=== PATIENT | male | born 1935 | race Caucasian/White ===

== ENCOUNTER → 2016-10-24 | Outpatient (CLI) | payer BC, OTHER ==
[~2016-10-24] MED LIST: ACET-1256 PO; ACET325T30 PO; ADVIN25050 INH; ASPI81TA57 PO; BISA-16 RE; CARV6.252 PO; ERGO1CAP35 PO; FLUT0.15 NAE; FLUT1INH INH; FRS/40 PO; HYCUDL5 PO; HYDR200T5 PO; IPRASOL4 INH; LEVO25TA PO; LSX40 PO; MAGNSUS5 PO; MELA1TAB5 PO; METO2.5T PO; MULT-884 PO; POLY335019 PO; POTA10CA28 PO; PRED10TA PO; SENN-61 PO; SODI1ENE RE; TERI600S SQ
--- NOTE | 2016-10-24 12:18 | DIAGNOSTIC IMAGING REPORT ---
CHEST 2 VIEWS ROUTINE CLINICAL HISTORY: SOB dyspnea COMPARISON STUDY: 12/25/2015 FINDINGS: Mild stable cardiomegaly. Prior median sternotomy. Findings of prior vertebroplasty. Chronic fullness the pulmonary vasculature. Several old bilateral rib fractures. IMPRESSION: Chronic and postoperative change. No acute process. Electronically signed by: Mario Bess M.D. 10/24/2016 12:16 PM
== END | disposition home or self-care (01) ==
LOC: C.RADBBURG 19:03
PROVIDERS: ATTEND Internal Medicine Pulmonary Disease
DX: R06.02 Shortness of breath (principal)

== ENCOUNTER → 2016-10-29 | Outpatient (CLI) | payer OTHER ==
--- NOTE | 2016-10-29 14:26 | DIAGNOSTIC IMAGING REPORT ---
CT HEAD WITHOUT CONTRAST (CT) CLINICAL HISTORY: RIGHT ARM WEAKNESS COMPARISON STUDY: No previous studies for comparison. TECHNIQUE: Axial CT of the brain is performed from the vertex to the skull base. IV contrast was not administered for this examination. CT DOSE: FINDINGS: No intra or extra-axial mass lesions are visualized. There is no CT evidence of acute cortical infarction. There is no evidence of midline shift. There is no acute hemorrhage. No calvarial fractures are visualized. There is slight hyperdensity of a left middle cerebral artery branch in the region of the sylvian fissure. I suspect but am not certain that this is artifactual. There are patchy white matter hypodensities likely on a small vessel basis. There is no evidence of pathologic ventricular dilatation. There is complete opacification left maxilla sinus. There is near complete opacification left ethmoid complex. There is complete opacification left frontal sinus. There is a probable nasal polyp. IMPRESSION: 1. Opacification of the left frontal maxillary and ethmoid sinuses 2. No acute intracranial findings. Electronically signed by: Rad Reynoso M.D. 10/29/2016 2:25 PM Dictated Date/Time: 10/29/2016 2:21 PM
--- NOTE | 2016-10-29 14:58 | DIAGNOSTIC IMAGING REPORT ---
CERVICAL SPINE 5 VIEWS HISTORY: Right arm weakness. Chronic neck pain. COMPARISON: Cervical spine 12/14/2014. FINDINGS: The cervical spinal is visualized from C1 through T1. However, the mid to lower cervical spine is partially obscured by the patient's overlapping shoulders. There is no fracture. Stable 2 mm of anterolisthesis of C2 on C3. Moderate disc space narrowing and endplate osteophytes are seen throughout the cervical spine. There is moderate facet degenerative changes seen throughout the cervical spine. This is not significantly change. S-shaped scoliosis of the cervicothoracic spine. Prevertebral soft tissues and the atlantodens interval are intact. IMPRESSION: 1. Difficult evaluation of the cervical spine due to patient's positioning. 2. No definite acute fractures identified. 3. Stable 2 mm of anterolisthesis of C2 on C3. This is likely due to long-standing degenerative change. 4. Moderate degenerative changes throughout the cervical spine are not significantly changed. Electronically signed by: Choco Camacho M.D. 10/29/2016 2:56 PM Dictated Date/Time: 10/29/2016 2:51 PM
== END | disposition home or self-care (01) ==
LOC: C.CTS 13:52
PROVIDERS: ATTEND Nurse Practitioner Family
DX: M62.81 Muscle weakness (generalized) (principal); M43.12 Spondylolisthesis, cervical region

== ENCOUNTER → 2016-10-30 | Outpatient (CLI) | payer OTHER ==
[2016-10-30 09:30] LABS: HEMATOCRIT 38.1 % (42-52); MEAN CELL VOLUME 89.6 fL (80-100); MEAN CORPUSCULAR HEMOGLOBIN 30.4 pg (25-34); MEAN CORPUSCULAR HGB CONC 33.9 g/dl (32-36); MEAN PLATELET VOLUME 11.3 fL (7.4-10.4); PLATELET COUNT 129 K/uL (130-400); RED BLOOD COUNT 4.25 M/uL (4.7-6.1); WHITE BLOOD COUNT 5.56 K/uL (4.8-10.8)
[2016-10-30 09:35] LABS: BLOOD UREA NITROGEN 46 mg/dl (7-18); BUN/CREATININE RATIO 48.3 (10-20); CALCIUM 9.5 mg/dl (8.5-10.1); CARBON DIOXIDE 27 mmol/L (21-32); CHLORIDE 100 mmol/L (98-107); CREATININE 0.96 mg/dl (0.60-1.40); GLUCOSE 69 mg/dl (70-99); POTASSIUM 4.4 mmol/L (3.5-5.1); SODIUM 138 mmol/L (136-145)
== END | disposition home or self-care (01) ==
LOC: C.LABFOXMH 09:12
PROVIDERS: ATTEND Internal Medicine
DX: I50.22 Chronic systolic (congestive) heart failure (principal)

== ENCOUNTER → 2016-11-06 | Outpatient (CLI) | payer OTHER ==
[2016-11-06 10:03] LABS: BASO % 0.2 %; BASO ABS # 0.01 K/uL (0-0.2); COMPLETE YES; EOS % 1.5 %; HEMATOCRIT 37.6 % (42-52); IG% 0.2 %; LYMPH % 17.1 %; LYMPH ABS # 0.81 K/uL (1.2-3.4); MEAN CELL VOLUME 88.9 fL (80-100); MEAN CORPUSCULAR HEMOGLOBIN 30.7 pg (25-34); MEAN CORPUSCULAR HGB CONC 34.6 g/dl (32-36); MEAN PLATELET VOLUME 11.5 fL (7.4-10.4); MONO % 14.8 %; NEUT % 66.2 %; PLATELET COUNT 118 K/uL (130-400); RED BLOOD COUNT 4.23 M/uL (4.7-6.1); WHITE BLOOD COUNT 4.74 K/uL (4.8-10.8)
[2016-11-06 10:16] LABS: BLOOD UREA NITROGEN 44 mg/dl (7-18); BUN/CREATININE RATIO 50.8 (10-20); CALCIUM 9.5 mg/dl (8.5-10.1); CARBON DIOXIDE 28 mmol/L (21-32); CHLORIDE 103 mmol/L (98-107); CREATININE 0.87 mg/dl (0.60-1.40); GLUCOSE 65 mg/dl (70-99); MAGNESIUM 1.8 mg/dl (1.8-2.4); POTASSIUM 4.2 mmol/L (3.5-5.1); SODIUM 140 mmol/L (136-145)
== END | disposition home or self-care (01) ==
LOC: C.LABFOXMH 09:38
PROVIDERS: ATTEND Internal Medicine
DX: I50.40 Unspecified combined systolic (congestive) and diastolic (congestive) heart failure (principal); R53.83 Other fatigue

== ENCOUNTER → 2016-11-15 | Outpatient (CLI) | payer OTHER ==
[2016-11-15 10:07] LABS: BLOOD UREA NITROGEN 50 mg/dl (7-18); BUN/CREATININE RATIO 51.6 (10-20); CALCIUM 9.3 mg/dl (8.5-10.1); CARBON DIOXIDE 29 mmol/L (21-32); CHLORIDE 103 mmol/L (98-107); CREATININE 0.97 mg/dl (0.60-1.40); GLUCOSE 109 mg/dl (70-99); POTASSIUM 4.5 mmol/L (3.5-5.1); SODIUM 139 mmol/L (136-145)
== END | disposition home or self-care (01) ==
LOC: C.LABFOXMH 09:17
PROVIDERS: ATTEND Internal Medicine
DX: I50.40 Unspecified combined systolic (congestive) and diastolic (congestive) heart failure (principal)

== ENCOUNTER → 2016-12-03 | Outpatient (CLI) | payer OTHER ==
[2016-12-03 10:30] LABS: BLOOD UREA NITROGEN 37 mg/dl (7-18); BUN/CREATININE RATIO 39.8 (10-20); CALCIUM 9.3 mg/dl (8.5-10.1); CARBON DIOXIDE 28 mmol/L (21-32); CHLORIDE 101 mmol/L (98-107); CREATININE 0.94 mg/dl (0.60-1.40); GLUCOSE 52 mg/dl (70-99); POTASSIUM 4.6 mmol/L (3.5-5.1); SODIUM 139 mmol/L (136-145)
== END | disposition home or self-care (01) ==
LOC: C.LABFOXMH 09:09
PROVIDERS: ATTEND Nurse Practitioner Family
DX: R60.9 Edema, unspecified (principal)

== ENCOUNTER → 2016-12-10 | Outpatient (CLI) | payer OTHER ==
[2016-12-10 08:59] LABS: BLOOD UREA NITROGEN 56 mg/dl (7-18); BUN/CREATININE RATIO 43.4 (10-20); CALCIUM 9.5 mg/dl (8.5-10.1); CARBON DIOXIDE 28 mmol/L (21-32); CHLORIDE 97 mmol/L (98-107); POTASSIUM 4.4 mmol/L (3.5-5.1); SODIUM 135 mmol/L (136-145)
[2016-12-10 09:00] LABS: GLUCOSE 43 mg/dl (70-99)
== END | disposition home or self-care (01) ==
LOC: C.LABFOXMH 08:33
PROVIDERS: ATTEND Internal Medicine Cardiovascular Disease
DX: I25.10 Atherosclerotic heart disease of native coronary artery without angina pectoris (principal); I42.9 Cardiomyopathy, unspecified; I50.22 Chronic systolic (congestive) heart failure; I27.81 Cor pulmonale (chronic); I51.9 Heart disease, unspecified

== ENCOUNTER 2016-12-15 15:08 | Inpatient (IN) | payer OTHER ==
[2016-12-15] VITALS (30 sets, daily range): BP systolic 53–126; BP diastolic 34–86; PULSE 65–89; TEMP 32–34.9; O2SAT 91–100; Ht 157.5 cm; Wt 54.7 kg
[~2016-12-15] VITALS: Ht 157.5 cm; Wt 54.7 kg
[~2016-12-15 15:08] MED LIST changes: -ACET325T30 PO; -BISA-16 RE; -FLUT1INH INH; -FRS/40 PO; -METO2.5T PO; -POTA10CA28 PO; -SODI1ENE RE
[2016-12-15] MEDS ORDERED: SODIUM CHLORIDE 0.9% 1000ML 1,000 ML IV STA (15:11)
[2016-12-15] MEDS ORDERED: DOPamine 400MG / 250ML D5W ONE ×2 (15:29→22:03)
[2016-12-15] MEDS ORDERED: DOPamine 400MG / D5W 400 MG IV STA (15:30)
--- NOTE | 2016-12-15 15:42 | DIAGNOSTIC IMAGING REPORT ---
LEFT TIBIA/FIBULA 2 VIEWS ROUTINE CLINICAL HISTORY: Left leg pain following fall. COMPARISON: None FINDINGS: No acute fracture of the left tibia or fibula is identified. There is suspected soft tissue swelling of the left lower leg. There is moderate vascular calcification. IMPRESSION: No acute fracture of the left tibia or fibula. Electronically signed by: Mahesh Jaime M.D. 12/15/2016 3:41 PM Dictated Date/Time: 12/15/2016 3:39 PM
[2016-12-15 15:47] LABS: INR 1.2 (0.9-1.1); PARTIAL THROMBOPLASTIN RATIO 1.6; PROTHROMBIN TIME (PATIENT) 12.7 SECONDS (9.0-12.0)
[2016-12-15 15:48] LABS: ISTAT CREATININE 2.2 mg/dl (0.6-1.3); ISTAT HEMOGLOBIN 11.6 g/dl (14.0-18.0); ISTAT IONIZED CALCIUM 1.27 mmol/l (1.12-1.32)
[2016-12-15 15:51] LABS: POINT OF CARE TROPONIN I 0.03 ng/ml (0-0.045)
--- NOTE | 2016-12-15 15:52 | DIAGNOSTIC IMAGING REPORT ---
CHEST ONE VIEW PORTABLE CLINICAL HISTORY: Weakness. Lower leg injury. COMPARISON STUDY: Chest radiograph October 24, 2016. FINDINGS: A 1 level vertebral augmentation is noted. Moderate cardiomegaly is unchanged. There are median sternotomy wires. There is no pneumothorax. Blunting of the right costophrenic angle is likely chronic. Diffuse interstitial thickening and bilateral opacities have increased. Lower lung linear opacities suggest scarring or atelectasis. IMPRESSION: 1. Increase in diffuse interstitial thickening and bilateral opacities which may reflect pulmonary edema or an infectious process. 2. No pneumothorax. 3. Stable cardiomegaly. Electronically signed by: Mahesh Jaime M.D. 12/15/2016 3:50 PM Dictated Date/Time: 12/15/2016 3:47 PM
[2016-12-15 15:54] LABS: URINE APPEARANCE CLEAR (CLEAR); URINE BILIRUBIN NEG (NEG); URINE COLOR YELLOW; URINE NITRITE NEG (NEG); URINE SPECIFIC GRAVITY 1.012 (1.000-1.030); UROBILINOGEN NEG (NEG)
[2016-12-15 15:54] LABS: ALT/SGPT 35 U/L (12-78); AST/SGOT 43 U/L (15-37); BLOOD UREA NITROGEN 77 mg/dl (7-18); BUN/CREATININE RATIO 33.4 (10-20); CALCIUM 8.6 mg/dl (8.5-10.1); CARBON DIOXIDE 26 mmol/L (21-32); CHLORIDE 101 mmol/L (98-107); GLUCOSE 117 mg/dl (70-99); MAGNESIUM 2.6 mg/dl (1.8-2.4); POTASSIUM 4.2 mmol/L (3.5-5.1); SODIUM 138 mmol/L (136-145)
[2016-12-15 15:57] LABS: MANUAL MICROSCOPIC REQUIRED? NO; REVIEW REQ? NO
[2016-12-15 16:03] LABS: ALKALINE PHOSPHATASE 83 U/L (45-117); CKMB/CK RATIO 12.7 (0-3.0)
[2016-12-15] MEDS ORDERED: PIPERACILLIN/TAZOBACTAM 4.5 GM/100ML D5W IV STA (16:15)
[2016-12-15] MEDS ORDERED: LEVAQUIN 750MG / 150ML D5W IV STA (16:15)
--- NOTE | 2016-12-15 16:22 | DIAGNOSTIC IMAGING REPORT ---
CT OF THE HEAD WITHOUT CONTRAST CLINICAL HISTORY: Weakness. COMPARISON STUDY: Head CT October 29, 2016. TECHNIQUE: Helical axial images of the head were obtained without IV contrast. Automated exposure control was utilized for the study. FINDINGS: No acute intracranial hemorrhage, midline shift or mass effect is present. Ventricular system is stable. This study is mildly compromised by motion artifact. The basilar cisterns are patent. There are no extra axial collections. White matter hypodensity suggests small vessel disease. There are no findings to suggest acute dural sinus thrombosis or acute territorial infarct. Suspected venous gas is noted at the level the foramen magnum. Mastoid air cells are clear. Nasal cannula is in place. As before, the left maxillary, ethmoid and frontal sinuses are opacified. There has been interval development of air-fluid levels within the right frontal and maxillary sinuses. There is no calvarial fracture. IMPRESSION: 1. No acute intracranial findings. 2. Opacified left maxillary, ethmoid and frontal sinuses, similar to exam of October 29, 2016 with widening of the left maxillary sinus ostium. Interval development of air-fluid levels within the right frontal and maxillary sinuses. Electronically signed by: Mahesh Jaime M.D. 12/15/2016 4:21 PM Dictated Date/Time: 12/15/2016 4:11 PM
--- NOTE | 2016-12-15 16:32 | DIAGNOSTIC IMAGING REPORT ---
CT OF THE CERVICAL SPINE WITHOUT CONTRAST CLINICAL HISTORY: Fall. Altered mental status. COMPARISON STUDY: Cervical spine CT August 27, 2015 and cervical spine radiographs October 29, 2016. TECHNIQUE: Helical axial images of the cervical spine were obtained without IV contrast. Sagittal and coronal reconstructions were viewed. FINDINGS: No acute cervical spine fracture is identified. Note is made of severe arthrosis of the left C2-C3 facet joint. Moderate to severe multilevel degenerative changes are present. There is mild leftward curvature of the cervical spine which may be positional. There is gas at the level the foramen magnum that is likely venous in location. There is no prevertebral edema. Craniocervical junction is intact. IMPRESSION: 1. No acute cervical spine fracture or subluxation. 2. Moderate to severe multilevel degenerative disc disease and facet arthrosis of the cervical spine. Electronically signed by: Mahesh Jaime M.D. 12/15/2016 4:30 PM Dictated Date/Time: 12/15/2016 4:23 PM
[2016-12-15 16:35] LABS: HEMATOCRIT 33.5 % (42-52); MEAN CELL VOLUME 88.2 fL (80-100); MEAN CORPUSCULAR HEMOGLOBIN 30.5 pg (25-34); MEAN CORPUSCULAR HGB CONC 34.6 g/dl (32-36); PLATELET COUNT 40 K/uL (130-400); WHITE BLOOD COUNT 1.66 K/uL (4.8-10.8)
[2016-12-15 16:36] LABS: HYPOSEGMENTED POLYS 1+; LARGE PLATELETS 1+; PLT ESTIMATE DECREASED; TOXIC GRANULATION 2+; VACUOLIZATION 1+
[2016-12-15 16:47] LABS: COMPLETE YES; EOSINOPHIL % 1.7 %; LYMPH ABS # 0.06 K/uL (1.2-3.4); LYMPHOCYTE % 3.4 %; META ABS # 0.53 K/uL (0-0); METAMYELOCYTE % 31.9 %; MYELOCYTE % 10.3 %; NEUTROPHILS % 51.8 %
--- NOTE | 2016-12-15 16:47 | DIAGNOSTIC IMAGING REPORT ---
CT OF THE ABDOMEN AND PELVIS WITHOUT CONTRAST CLINICAL HISTORY: Hypotension. Altered mental status. COMPARISON STUDY: CT of the abdomen and pelvis August 27, 2015. TECHNIQUE: Axial images of the abdomen and pelvis were obtained without IV contrast. Images were reviewed in the axial, sagittal, and coronal planes. FINDINGS: Visualized portions if the lower chest demonstrate moderate cardiomegaly and extensive coronary artery calcification. There is lingular and left lower lobe airspace opacity. Right lower lobe opacity favors atelectasis. No pneumatosis, free air or portal venous gas is present. This exam is significantly compressed by the lack of IV and oral contrast as well as paucity of intra-abdominal fat and motion artifact. There are small gallstones within the gallbladder. The gallbladder is mildly distended. There is indistinctness of the gallbladder wall. Diffuse mesenteric infiltration is present. Unenhanced images of the liver, spleen and kidneys are unremarkable. There is no hydronephrosis. There is no evidence for a bowel obstruction. There may be wall thickening of several small bowel loops which is suboptimally assessed on this exam. A Nicolas balloon is present. Several small bowel loops are noted within the right inguinal hernia without evidence for a bowel obstruction. There are multiple lumbar spine compression fractures which are likely old. Anasarca is noted. There is peripancreatic infiltration. The prostate is enlarged. IMPRESSION: 1. Markedly compromised exam due to lack of contrast and paucity of intraabdominal fat, 2. Gallstones and indistinctness of the gallbladder wall. The findings could reflect acute cholecystitis. 3. Diffuse mesenteric infiltration with peripancreatic infiltration. This could be due to volume overload or acute pancreatitis. 4. Apparent wall thickening of several small bowel loops which could be due to underdistention or represent a nonspecific enteritis. No free air, pneumatosis or portal venous gas. 5. Left lower lobe and lingular opacities. This could reflect pneumonia or atelectasis. Electronically signed by: Mahesh Jaime M.D. 12/15/2016 4:46 PM Dictated Date/Time: 12/15/2016 4:34 PM
[2016-12-15] MEDS ORDERED: METO2.5T PO (17:05)
[2016-12-15] MEDS ORDERED: POTA10CA28 PO (17:05)
[2016-12-15] MEDS ORDERED: FLUT1INH INH (17:05)
[2016-12-15] MEDS ORDERED: BISA-16 RE (17:05)
[2016-12-15] MEDS ORDERED: ACET325T30 PO (17:05)
[2016-12-15] MEDS ORDERED: FRS/40 PO (17:05)
[2016-12-15] MEDS ORDERED: SODI1ENE RE (17:05)
[2016-12-15 19:21] LABS: ISTAT ALLEN TEST Pass; ISTAT ARTERIAL BLOOD GAS HCO3 23 meq/L (19-24); ISTAT ARTERIAL BLOOD GAS PCO2 70 mmHg (35-46); ISTAT ARTERIAL BLOOD GAS PO2 61 mmHg (80-95); ISTAT ARTERIAL BLOOD GAS pH 7.13 (7.35-7.45); ISTAT CARBON DIOXIDE 25 mEq/l (24-31); ISTAT DELIVERY SYSTEM SimpleMask; ISTAT SITE R Radial
[2016-12-15] MEDS ORDERED: METHYLPREDNISOLONE IV 80 MG in SYRINGE 0 ML IV ONE (19:31)
[2016-12-15] MEDS ORDERED: ACETAMINOPHEN 325 MG TAB PO PRN (19:45)
[2016-12-15] MEDS ORDERED: BISACODYL 5 MG TABEC PO PRN (19:45)
[2016-12-15] MEDS ORDERED: MAGNESIUM HYDROXIDE SUSP 30 ML UDC PO PRN (19:45)
[2016-12-15] MEDS ORDERED: SOD PHOSPHATE/SOD BIPHOSPHATE ENEMA 132 ML BTL PR PRN (19:45)
[2016-12-15] MEDS ORDERED: ALBUTEROL 0.083% NEBU SOLN 3 ML VIAL INH PRN (19:45)
[2016-12-15 20:44] LABS: FIBRINOGEN* 408 mg/dl (184-400)
[2016-12-15] MEDS ORDERED: ACETAMINOPHEN IV 1,000 MG in EMPTY BAG 0 ML IV PRN (20:45)
[2016-12-15] MEDS ORDERED: CHLORHEXIDINE GLUCONATE 0.12% 480 ML MT SCH (21:00)
[2016-12-15] MEDS ORDERED: LEVOFLOXACIN CONSULT ACTIVE PRN (21:00)
[2016-12-15] MEDS ORDERED: DOBUTamine / D5W 500 MG IV PRN (21:00)
[2016-12-15] MEDS ORDERED: NYSTATIN CR 15 GM TUBE EXT SCH (21:00)
[2016-12-15] MEDS ORDERED: POTASSIUM CHLORIDE 10 MEQ TABCR PO SCH (21:00)
[2016-12-15] MEDS ORDERED: NOREPINEPHRINE BIT INJ 8 MG in DEXTROSE 5% 500ML 500 ML IV PRN (21:08)
[2016-12-15] MEDS ORDERED: LINEZOLID / D5W 600 MG in PREMIXED IN D5W 300 ML IV ONE (21:14)
[2016-12-15] MEDS ORDERED: ONDANSETRON INJ 2 MG/ML 2 ML VIAL IV PRN (21:15)
[2016-12-15] MEDS ORDERED: ACETAMINOPHEN IV 1000MG/100ML IV PRN (21:30)
[2016-12-15] MEDS: METHYLPREDNISOLONE IV 80 MG in SYRINGE 0 ML IV SCH (21:33)
--- NOTE | 2016-12-15 21:49 | History and Physical ---
History & Physical Date & Time of Service: Dec 15, 2016 at 21:48 Chief Complaint: Unresponsive Primary Care Physician: Vinnie Nieves M.D. Past Medical/Surgical History Medical Problems: (1) Bronchitis Status: Resolved (2) CHF (congestive heart failure) Status: Chronic (3) DVT (deep venous thrombosis) Status: Resolved (4) Pneumonia Status: Resolved (5) Vertebral compression fracture Status: Resolved Family History Heart disease Hypertension Social History Smoking Status: Never Smoker Drug Use: none Marital Status: Occupational Status: retired Multi-Drug Resistant Organisms History of MDRO: Yes Type of MDRO: MRSA Allergies Coded Allergies: Atorvastatin (Verified Allergy, Unknown, RASH, 12/15/16) Clindamycin (Verified Allergy, Unknown, RASH, 12/15/16) Sulfamethoxazole w/Trimethoprim (Verified Allergy, Unknown, fever, 12/15/16 ) Uncoded Allergies: ANIT-RHEUMATICS (Allergy, Unknown, FEVER,FLU LIKE SYMPTOMS, 01/06/15) Home Medications Scheduled Aspirin (Aspirin Ec Lo-Dose), 81 MG PO QAM Bisacodyl (Dulcolax), 10 MG RE UD Carvedilol (Coreg), 6.25 MG PO BID Ergocalciferol (Vitamin D Cap), 50,000 INTER.UNIT PO WK Fluticasone Furoate-Vilanterol (Breo Ellipta), 25 MCG INH DAILY Furosemide (Lasix), 60 MG PO DAILY Hydroxychloroquine Sulfate (Plaquenil), 200 MG PO DAILY Ipratropium-Albuterol (Duoneb), 1 TREATMENT INH QID Levothyroxine Sodium (Synthroid), 25 MCG PO DAILY Metolazone (Zaroxolyn), 2.5 MG PO DAILY Multiple Vitamin (Multi Vitamin Daily), 1 TAB PO DAILY Potassium Chloride (Micro-K Ext Rel), 10 MEQ PO BID Prednisone Tab (Prednisone), 5 MG PO DAILY Sodium Phosphates (Fleet Enema Six Pack), 1 APPLN RE [id number] Teriparatide (Recombinant) (Forteo), 20 MCG SQ DAILY Scheduled PRN Acetaminophen (Acetaminophen), 650 MG PO Q4 PRN for Pain Magnesium Hydroxide (Milk Of Magnesia), 30 ML PO DAILY PRN for Constipation Physical Exam Vital Signs Date Time Temp Pulse Resp B/P Pulse Ox O2 Delivery O2 Flow Rate FiO2 12/15/16 20:14 32.0 71 37 82/57 95 12/15/16 20:00 92 BiPAP 70 12/15/16 20:00 32.0 71 29 93 12/15/16 19:59 32.0 73 26 90/60 100 12/15/16 19:44 74 33 98/58 97 12/15/16 19:29 72 25 99/54 95 12/15/16 19:14 77 23 102/49 93 12/15/16 19:00 76 22 95 12/15/16 18:31 72 20 90/50 95 Non-Rebreather 15.0 12/15/16 18:00 36.3 68 34 104/60 96 12/15/16 17:49 104/60 96 Non-Rebreather 12/15/16 17:44 68 34 95 Non-Rebreather 12/15/16 17:39 99/60 12/15/16 17:34 68 31 92 Non-Rebreather 12/15/16 17:29 36.3 24 106/56 12/15/16 17:24 68 30 97 Non-Rebreather 12/15/16 17:19 106/60 12/15/16 17:14 70 35 99 Non-Rebreather 12/15/16 17:09 69 30 104/58 97 Non-Rebreather 12/15/16 16:58 101/61 12/15/16 16:54 70 30 96 Non-Rebreather 12/15/16 16:52 101/52 12/15/16 16:39 71 28 101/62 96 Non-Rebreather 12/15/16 16:34 72 24 96 Non-Rebreather 12/15/16 16:29 74 28 96 Non-Rebreather 12/15/16 16:28 104/56 12/15/16 16:24 72 34 94 Non-Rebreather 12/15/16 16:19 95/47 12/15/16 16:18 81 15 94 Non-Rebreather 12/15/16 16:13 73 35 98 Non-Rebreather 12/15/16 16:12 92/46 12/15/16 15:45 66/45 12/15/16 15:43 80 30 Ambu-Bag 12/15/16 15:40 61/29 12/15/16 15:38 79 41 60/40 92 Ambu-Bag 12/15/16 15:34 58/36 12/15/16 15:33 62 32 96 Ambu-Bag 12/15/16 15:29 46/30 12/15/16 15:28 58 34 93 Ambu-Bag 12/15/16 15:25 81/45 12/15/16 15:25 92 Ambu-Bag 15.0 12/15/16 15:23 40 30 94 Ambu-Bag 12/15/16 15:21 12/15/16 15:20 44 65/42 94 Ambu-Bag 12/15/16 15:18 67 22 96 Ambu-Bag 12/15/16 15:17 47 12/15/16 15:14 65/42 12/15/16 15:12 150/24 Diagnostics Laboratory Results Results Past 24 Hours Test 12/15/16 15:25 12/15/16 15:26 12/15/16 15:28 12/15/16 15:31 Range/Units White Blood Count 1.66 4.8-10.8 K/uL Red Blood Count 3.80 4.7-6.1 M/uL Hemoglobin 11.6 14.0-18.0 g/dL Hematocrit 33.5 42-52 % Mean Corpuscular Volume 88.2 80-100 fL Mean Corpuscular Hemoglobin 30.5 25-34 pg Mean Corpuscular Hemoglobin Concent 34.6 32-36 g/dl Platelet Count 40 130-400 K/uL Mean Platelet Volume 12.0 7.4-10.4 fL RDW Standard Deviation 50.6 36.4-46.3 fL RDW Coefficient of Variation 15.8 11.5-14.5 % Nucleated RBC Absolute Count (auto) 0.10 0-0 K/uL Neutrophils % (Manual) 51.8 % Lymphocytes % (Manual) 3.4 % Monocytes % (Manual) 0.9 % Eosinophils % (Manual) 1.7 % Metamyelocytes % 31.9 % Myelocytes % 10.3 % Nucleated Red Blood Cells % 5.7 % Neutrophils # (Manual) 0.86 1.4-6.5 K/uL Total Absolute Neutrophils 0.86 1.4-6.5 K/uL Lymphocytes # (Manual) 0.06 1.2-3.4 K/uL Total Absolute Lymphocytes 0.06 1.2-3.4 K/uL Monocytes # (Manual) 0.01 0.11-0.59 K/uL Eosinophils # (Manual) 0.03 0-0.5 K/uL Metamyelocytes # 0.53 0-0 K/uL Myelocytes # 0.17 0-0 K/uL Hyposegmented Neutrophils 1+ Toxic Granulation 2+ Toxic Vacuolation 1+ Platelet Estimate DECREASED Large Platelets 1+ Prothrombin Time 12.7 9.0-12.0 SECONDS Prothromb Time International Ratio 1.2 0.9-1.1 Activated Partial Thromboplast Time 41.1 21.0-31.0 SECONDS Partial Thromboplastin Ratio 1.6 Sodium Level 138 136-145 mmol/L Potassium Level 4.2 3.5-5.1 mmol/L Chloride Level 101 98-107 mmol/L Carbon Dioxide Level 26 21-32 mmol/L Anion Gap 11.0 3-11 mmol/L Blood Urea Nitrogen 77 7-18 mg/dl Creatinine 2.30 0.60-1.40 mg/dl Estimated GFR () 29.8 Estimated GFR (Non- 25.7 BUN/Creatinine Ratio 33.4 10-20 Random Glucose 117 70-99 mg/dl Calcium Level 8.6 8.5-10.1 mg/dl Magnesium Level 2.6 1.8-2.4 mg/dl Total Bilirubin 0.4 0.2-1 mg/dl Direct Bilirubin 0.2 0-0.2 mg/dl Aspartate Amino Transf (AST/SGOT) 43 15-37 U/L Alanine Aminotransferase (ALT/SGPT) 35 12-78 U/L Alkaline Phosphatase 83 45-117 U/L Total Creatine Kinase 138 39-308 U/L Creatine Kinase MB 17.5 0.5-3.6 ng/ml Creatine Kinase MB Ratio 12.7 0-3.0 Total Protein 4.8 6.4-8.2 gm/dl Albumin 1.9 3.4-5.0 gm/dl Lipase 7213 73-393 U/L Procalcitonin 2.12 0-0.5 ng/mL Thyroid Stimulating Hormone (TSH) 1.990 0.300-4.500 uIu/ml Bedside Glucose 118 70-99 mg/dl Bedside Lactic Acid Venous 1.53 0.90-1.70 mmol/L Bedside Troponin I 0.030 0-0.045 ng/ml [id number]-[id number] Natriuretic Peptide 7368 0-1800 pg/ml Test 12/15/16 15:32 12/15/16 15:45 12/15/16 19:08 12/15/16 19:13 Range/Units Bedside Hemoglobin 11.6 14.0-18.0 g/dl Bedside Hematocrit 34 42-52 % Bedside Sodium 134 135-144 mEq/L Bedside Potassium 4.1 3.3-5.0 mEq/L Bedside Chloride 98 101-112 mEq/L Bedside Total CO2 25 24-31 mEq/l Anion Gap 16.0 16-25 mmol/L Bedside Blood Urea Nitrogen 74 7-18 mg/dl Bedside Creatinine 2.2 0.6-1.3 mg/dl Bedside Glucose (other) 118 70-99 mg/dl Bedside Ionized Calcium (Mery) 1.27 1.12-1.32 mmol/l Urine Color YELLOW Urine Appearance CLEAR CLEAR Urine pH 5.0 4.5-7.5 Urine Specific Calcium 1.012 1.000-1.030 Urine Protein NEG NEG Urine Glucose (UA) NEG NEG Urine Ketones NEG NEG Urine Occult Blood NEG NEG Urine Nitrite NEG NEG Urine Bilirubin NEG NEG Urine Urobilinogen NEG NEG Urine Leukocyte Esterase NEG NEG Blood Gas Sample Site R Radial Bedside Blood Gas pH (LAB) 7.13 7.35-7.45 Bedside Blood Gas pCO2 (LAB) 70 35-46 mmHg Bedside Blood Gas pO2 (LAB) 61 80-95 mmHg Bedside Blood Gas HCO3 (LAB) 23 19-24 meq/L Bedside Blood Gas Total CO2 25 24-31 mEq/l Bedside Blood Gas Base Excess (LAB) -6.0 -9-1.8 meq/L Bedside Blood Gas O2 Saturation 82.0 90-95 % Silvano Test Pass Oxygen Delivery Device SimpleMask Random Cortisol 54.14 mcg/dl Test 12/15/16 20:05 12/15/16 21:47 Range/Units Fibrinogen 408 184-400 mg/dl Fibrin Degradation Products >40 <10 mcg/ml D-Dimer 7100 0-500 ug/L FEU Microbiology Results 12/15/16 Blood Culture, Received Pending 12/15/16 Blood Culture, Received Pending 12/15/16 MRSA DNA Surveillance Screen - Final, Complete Specimen Positive for MRSA by DNA Probe 2/26/17 Urine Culture, Received Pending Impression Assessment and Plan admit #[id number] Advanced Directives Existing Living Will: Yes Existing Power of Way Inspector: Yes VTE Prophylaxis VTE Risk Assessment Done? Y/N: Yes Risk Level: Moderate
[2016-12-15 21:52] LABS: IPAP 12; ISTAT ALLEN TEST Pass; ISTAT ARTERIAL BLOOD GAS HCO3 20 meq/L (19-24); ISTAT ARTERIAL BLOOD GAS PCO2 37 mmHg (35-46); ISTAT ARTERIAL BLOOD GAS PO2 45 mmHg (80-95); ISTAT ARTERIAL BLOOD GAS pH 7.32 (7.35-7.45); ISTAT CARBON DIOXIDE 21 mEq/l (24-31); ISTAT DELIVERY SYSTEM BIPAP; ISTAT FIO2 70 %; ISTAT RATE 12; ISTAT SITE L Radial
--- NOTE | 2016-12-15 22:07 | DIAGNOSTIC IMAGING REPORT ---
BILATERAL LOWER EXTREMITY VENOUS DOPPLER CLINICAL HISTORY: Hypoxia. Asymmetric edema. COMPARISON STUDY: No previous studies for comparison. TECHNIQUE: Sonography of the deep venous system of the bilateral lower extremities was performed. Compression and augmentation were evaluated. FINDINGS: The bilateral common femoral, superficial femoral and popliteal veins were compressible. Augmentation was normal. Flow was shown within the deep calf vessels. Lower extremity edema was noted. Note was made of a right inguinal hernia which contained a small amount of ascites and several bowel loops. This was better depicted on recent abdominal CT. IMPRESSION: 1. No evidence of deep venous thrombus within the bilateral lower extremities. 2. Bowel and fluid containing right inguinal hernia. Electronically signed by: Mahesh Jaime M.D. 12/15/2016 10:05 PM Dictated Date/Time: 12/15/2016 10:04 PM
--- NOTE | 2016-12-15 22:07 | Progress Note ---
Progress Note Date of Service Dec 15, 2016. Progress Note clarification on H&P - DVT proph - i mistakenly dictated heparin SQ - cannot be on pharmacologic proph due to thrombocytopenia; with frail skin and edema - mechanical prophylaxis of dubious benefit in true VTE prevention, and quite strong possible harm from skin breakdown and/or falls. will have to hold on proph and maintain vigilance for s/s DVT w low threshold for further evaluation
[2016-12-15] MEDS ORDERED: SODIUM CHLORIDE 0.9% 1000ML 1,000 ML IV SCH (22:15)
[2016-12-15] MEDS: ALBUT/IPRATROP 3MG/0.5MG NEB 3 ML VIAL INH SCH (22:15)
[2016-12-15] MEDS ORDERED: DOPamine 400MG / D5W 400 MG IV PRN (22:15)
--- NOTE | 2016-12-15 22:39 | EMERGENCY ROOM VISIT NOTE ---
History Report prepared by Sarbjit: Jodi Bautista Under the Supervision of: Dr. Los Han M.D. First contact with patient: 14:54 Stated Complaint: UNRESPONSIVE History of Present Illness The patient is a 81 year old male who presents to the Emergency Room with complaints of being found unresponsive. Per EMS and family, the patient lives at [facility], [place]. He was found in his room unresponsive. Time of unresponsiveness is unknown. EMS arrived and notes he was hypertensive, bradycardic and did not respond to painful stimuli. EMS called for command and established IV. Family was present and states that patient is DNR/DNI. His blood sugar level was 24. IV was established, fluids and supplemental oxygen were given. Dextrose was given to the patient and his blood sugar levels are now 290. Patient is still hypertensive and an ECG shows a heart block. EMS talked with the family and they are okay with pacing. EMS applied pacing and transported patient to ED. This HPI is limited due to the patient's unresponsiveness. Per the patient's family, he has a history of CHF. Last night the patient fell and has bruising to left lower leg. He has also been experiencing worsening physical and cognitive deterioration past 2 weeks. Source of History: family, EMS History Limited By: other (unresponsive) Review of Systems See HPI for pertinent positives and negatives. A total of ten systems were reviewed and were otherwise negative. Past Medical & Surgical Medical Problems: (1) Bronchitis (2) CHF (congestive heart failure) (3) DVT (deep venous thrombosis) (4) Pneumonia (5) Unresponsive (6) Vertebral compression fracture Family History Heart disease Hypertension Social History Smoking Status: Never Smoker Alcohol Use: occasionally Marital Status: Housing Status: [facility] Occupation Status: retired Current/Historical Medications Scheduled Aspirin (Aspirin Ec Lo-Dose), 81 MG PO QAM Bisacodyl (Dulcolax), 10 MG RE UD Carvedilol (Coreg), 6.25 MG PO BID Ergocalciferol (Vitamin D Cap), 50,000 INTER.UNIT PO WK Fluticasone Furoate-Vilanterol (Breo Ellipta), 25 MCG INH DAILY Furosemide (Lasix), 60 MG PO DAILY Hydroxychloroquine Sulfate (Plaquenil), 200 MG PO DAILY Ipratropium-Albuterol (Duoneb), 1 TREATMENT INH QID Levothyroxine Sodium (Synthroid), 25 MCG PO DAILY Metolazone (Zaroxolyn), 2.5 MG PO DAILY Multiple Vitamin (Multi Vitamin Daily), 1 TAB PO DAILY Potassium Chloride (Micro-K Ext Rel), 10 MEQ PO BID Prednisone Tab (Prednisone), 5 MG PO DAILY Sodium Phosphates (Fleet Enema Six Pack), 1 APPLN RE [id number] Teriparatide (Recombinant) (Forteo), 20 MCG SQ DAILY Scheduled PRN Acetaminophen (Acetaminophen), 650 MG PO Q4 PRN for Pain Magnesium Hydroxide (Milk Of Magnesia), 30 ML PO DAILY PRN for Constipation Allergies Coded Allergies: Atorvastatin (Verified Allergy, Unknown, RASH, 12/15/16) Clindamycin (Verified Allergy, Unknown, RASH, 12/15/16) Sulfamethoxazole w/Trimethoprim (Verified Allergy, Unknown, fever, 12/15/16 ) Uncoded Allergies: ANIT-RHEUMATICS (Allergy, Unknown, FEVER,FLU LIKE SYMPTOMS, 01/06/15) Physical Exam Vital Signs Date Time Temp Pulse Resp B/P Pulse Ox O2 Delivery O2 Flow Rate FiO2 12/15/16 17:09 69 30 104/58 97 Non-Rebreather 12/15/16 16:58 101/61 12/15/16 16:54 70 30 96 Non-Rebreather 12/15/16 16:52 101/52 12/15/16 16:39 71 28 101/62 96 Non-Rebreather 12/15/16 16:34 72 24 96 Non-Rebreather 12/15/16 16:29 74 28 96 Non-Rebreather 12/15/16 16:28 104/56 12/15/16 16:24 72 34 94 Non-Rebreather 12/15/16 16:19 95/47 12/15/16 16:18 81 15 94 Non-Rebreather 12/15/16 16:13 73 35 98 Non-Rebreather 12/15/16 16:12 92/46 12/15/16 15:45 66/45 12/15/16 15:43 80 30 Ambu-Bag 12/15/16 15:40 61/29 12/15/16 15:38 79 41 60/40 92 Ambu-Bag 12/15/16 15:34 58/36 12/15/16 15:33 62 32 96 Ambu-Bag 12/15/16 15:29 46/30 12/15/16 15:28 58 34 93 Ambu-Bag 12/15/16 15:25 81/45 12/15/16 15:25 92 Ambu-Bag 15.0 12/15/16 15:23 40 30 94 Ambu-Bag 12/15/16 15:21 12/15/16 15:20 44 65/42 94 Ambu-Bag 12/15/16 15:18 67 22 96 Ambu-Bag 12/15/16 15:17 47 12/15/16 15:14 65/42 12/15/16 15:12 150/24 Physical Exam GENERAL: Unresponsive. HENT: Normocephalic, atraumatic. Oropharynx unremarkable. EYES: Normal conjunctiva. Sclera non-icteric. NECK: Supple. No nuchal rigidity. FROM. No JVD. RESPIRATORY: Clear to auscultation. CARDIAC: Bradycardic rate, normal rhythm. Extremities warm and well perfused. Pulses equal. ABDOMEN: Soft, non-distended. No tenderness to palpation. No rebound or guarding. No masses. RECTAL: Deferred. MUSCULOSKELETAL: Chest examination reveals no tenderness. The back is symmetrical on inspection without obvious abnormality. There is no CVA tenderness to palpation. No joint edema. LOWER EXTREMITIES: Calves are equal size bilaterally and non-tender. 2+ edema. No discoloration. NEURO: Normal sensorium. No sensory or motor deficits noted. SKIN: No rash or jaundice noted. Medical Decision & Procedures ER Provider Diagnostic Interpretation: X ray results as stated below per my interpretation and radiologist interpretation. Other radiology results as stated below per my review and radiologist interpretation Limited bedside Ultrasound: Global hypokinesis, no pericardial infusion. CT OF THE HEAD WITHOUT CONTRAST CLINICAL HISTORY: Weakness. COMPARISON STUDY: Head CT October 29, 2016. TECHNIQUE: Helical axial images of the head were obtained without IV contrast. Automated exposure control was utilized for the study. FINDINGS: No acute intracranial hemorrhage, midline shift or mass effect is present. Ventricular system is stable. This study is mildly compromised by motion artifact. The basilar cisterns are patent. There are no extra axial collections. White matter hypodensity suggests small vessel disease. There are no findings to suggest acute dural sinus thrombosis or acute territorial infarct. Suspected venous gas is noted at the level the foramen magnum. Mastoid air cells are clear. Nasal cannula is in place. As before, the left maxillary, ethmoid and frontal sinuses are opacified. There has been interval development of air-fluid levels within the right frontal and maxillary sinuses. There is no calvarial fracture. IMPRESSION: 1. No acute intracranial findings. 2. Opacified left maxillary, ethmoid and frontal sinuses, similar to exam of October 29, 2016 with widening of the left maxillary sinus ostium. Interval development of air-fluid levels within the right frontal and maxillary sinuses. Electronically signed by: Mahesh Jaime M.D. 12/15/2016 4:21 PM Dictated Date/Time: 12/15/2016 4:11 PM CHEST ONE VIEW PORTABLE CLINICAL HISTORY: Weakness. Lower leg injury. COMPARISON STUDY: Chest radiograph October 24, 2016. FINDINGS: A 1 level vertebral augmentation is noted. Moderate cardiomegaly is unchanged. There are median sternotomy wires. There is no pneumothorax. Blunting of the right costophrenic angle is likely chronic. Diffuse interstitial thickening and bilateral opacities have increased. Lower lung linear opacities suggest scarring or atelectasis. IMPRESSION: 1. Increase in diffuse interstitial thickening and bilateral opacities which may reflect pulmonary edema or an infectious process. 2. No pneumothorax. 3. Stable cardiomegaly. Electronically signed by: Mahesh Jaime M.D. 12/15/2016 3:50 PM Dictated Date/Time: 12/15/2016 3:47 PM LEFT TIBIA/FIBULA 2 VIEWS ROUTINE CLINICAL HISTORY: Left leg pain following fall. COMPARISON: None FINDINGS: No acute fracture of the left tibia or fibula is identified. There is suspected soft tissue swelling of the left lower leg. There is moderate vascular calcification. IMPRESSION: No acute fracture of the left tibia or fibula. Electronically signed by: Mahesh Jaime M.D. 12/15/2016 3:41 PM Dictated Date/Time: 12/15/2016 3:[address] OF THE CERVICAL SPINE WITHOUT CONTRAST CLINICAL HISTORY: Fall. Altered mental status. COMPARISON STUDY: Cervical spine CT August 27, 2015 and cervical spine radiographs October 29, 2016. TECHNIQUE: Helical axial images of the cervical spine were obtained without IV contrast. Sagittal and coronal reconstructions were viewed. FINDINGS: No acute cervical spine fracture is identified. Note is made of severe arthrosis of the left C2-C3 facet joint. Moderate to severe multilevel degenerative changes are present. There is mild leftward curvature of the cervical spine which may be positional. There is gas at the level the foramen magnum that is likely venous in location. There is no prevertebral edema. Craniocervical junction is intact. IMPRESSION: 1. No acute cervical spine fracture or subluxation. 2. Moderate to severe multilevel degenerative disc disease and facet arthrosis of the cervical spine. Electronically signed by: Mahesh Jaime M.D. 12/15/2016 4:30 PM Dictated Date/Time: 12/15/2016 4:[address] OF THE ABDOMEN AND PELVIS WITHOUT CONTRAST CLINICAL HISTORY: Hypotension. Altered mental status. COMPARISON STUDY: CT of the abdomen and pelvis August 27, 2015. TECHNIQUE: Axial images of the abdomen and pelvis were obtained without IV contrast. Images were reviewed in the axial, sagittal, and coronal planes. FINDINGS: Visualized portions if the lower chest demonstrate moderate cardiomegaly and extensive coronary artery calcification. There is lingular and left lower lobe airspace opacity. Right lower lobe opacity favors atelectasis. No pneumatosis, free air or portal venous gas is present. This exam is significantly compressed by the lack of IV and oral contrast as well as paucity of intra-abdominal fat and motion artifact. There are small gallstones within the gallbladder. The gallbladder is mildly distended. There is indistinctness of the gallbladder wall. Diffuse mesenteric infiltration is present. Unenhanced images of the liver, spleen and kidneys are unremarkable. There is no hydronephrosis. There is no evidence for a bowel obstruction. There may be wall thickening of several small bowel loops which is suboptimally assessed on this exam. A Nicolas balloon is present. Several small bowel loops are noted within the right inguinal hernia without evidence for a bowel obstruction. There are multiple lumbar spine compression fractures which are likely old. Anasarca is noted. There is peripancreatic infiltration. The prostate is enlarged. IMPRESSION: 1. Markedly compromised exam due to lack of contrast and paucity of intraabdominal fat, 2. Gallstones and indistinctness of the gallbladder wall. The findings could reflect acute cholecystitis. 3. Diffuse mesenteric infiltration with peripancreatic infiltration. This could be due to volume overload or acute pancreatitis. 4. Apparent wall thickening of several small bowel loops which could be due to underdistention or represent a nonspecific enteritis. No free air, pneumatosis or portal venous gas. 5. Left lower lobe and lingular opacities. This could reflect pneumonia or atelectasis. Electronically signed by: Mahesh Jaime M.D. 12/15/2016 4:46 PM Dictated Date/Time: 12/15/2016 4:34 PM Laboratory Results 12/15/16 15:25 Red Blood Count 3.80, Mean Corpuscular Volume 88.2, Mean Corpuscular Hemoglobin 30.5, Mean Corpuscular Hemoglobin Concent 34.6, Mean Platelet Volume 12.0 12/15/16 15:25 Test 12/15/16 15:25 12/15/16 15:26 12/15/16 15:28 12/15/16 15:31 White Blood Count 1.66 K/uL (4.8-10.8) Red Blood Count 3.80 M/uL (4.7-6.1) Hemoglobin 11.6 g/dL (14.0-18.0) Hematocrit 33.5 % (42-52) Mean Corpuscular Volume 88.2 fL (80-100) Mean Corpuscular Hemoglobin 30.5 pg (25-34) Mean Corpuscular Hemoglobin Concent 34.6 g/dl (32-36) Platelet Count 40 K/uL (130-400) Mean Platelet Volume 12.0 fL (7.4-10.4) RDW Standard Deviation 50.6 fL (36.4-46.3) RDW Coefficient of Variation 15.8 % (11.5-14.5) Nucleated RBC Absolute Count (auto) 0.10 K/uL (0-0) Neutrophils % (Manual) 51.8 % Lymphocytes % (Manual) 3.4 % Monocytes % (Manual) 0.9 % Eosinophils % (Manual) 1.7 % Metamyelocytes % 31.9 % Myelocytes % 10.3 % Nucleated Red Blood Cells % 5.7 % Neutrophils # (Manual) 0.86 K/uL (1.4-6.5) Total Absolute Neutrophils 0.86 K/uL (1.4-6.5) Lymphocytes # (Manual) 0.06 K/uL (1.2-3.4) Total Absolute Lymphocytes 0.06 K/uL (1.2-3.4) Monocytes # (Manual) 0.01 K/uL (0.11-0.59) Eosinophils # (Manual) 0.03 K/uL (0-0.5) Metamyelocytes # 0.53 K/uL (0-0) Myelocytes # 0.17 K/uL (0-0) Hyposegmented Neutrophils 1+ Toxic Granulation 2+ Toxic Vacuolation 1+ Platelet Estimate DECREASED Large Platelets 1+ Absolute Reticulocyte Count 0.04 10^6/uL (0.02-0.10) Percent Reticulocyte Count 1.0 % (0.5-2.0) Prothrombin Time 12.7 SECONDS (9.0-12.0) Prothromb Time International Ratio 1.2 (0.9-1.1) Activated Partial Thromboplast Time 41.1 SECONDS (21.0-31.0) Partial Thromboplastin Ratio 1.6 Estimated GFR () 29.8 Estimated GFR (Non- 25.7 BUN/Creatinine Ratio 33.4 (10-20) Calcium Level 8.6 mg/dl (8.5-10.1) Magnesium Level 2.6 mg/dl (1.8-2.4) Total Bilirubin 0.4 mg/dl (0.2-1) Direct Bilirubin 0.2 mg/dl (0-0.2) Aspartate Amino Transf (AST/SGOT) 43 U/L (15-37) Alanine Aminotransferase (ALT/SGPT) 35 U/L (12-78) Alkaline Phosphatase 83 U/L (45-117) Total Creatine Kinase 138 U/L (39-308) Creatine Kinase MB 17.5 ng/ml (0.5-3.6) Creatine Kinase MB Ratio 12.7 (0-3.0) Total Protein 4.8 gm/dl (6.4-8.2) Albumin 1.9 gm/dl (3.4-5.0) Lipase 7213 U/L (73-393) Procalcitonin 2.12 ng/mL (0-0.5) Thyroid Stimulating Hormone (TSH) 1.990 uIu/ml (0.300-4.500) Bedside Glucose 118 mg/dl (70-99) Bedside Lactic Acid Venous 1.53 mmol/L (0.90-1.70) Bedside Troponin I 0.030 ng/ml (0-0.045) SG-Xvl-D-Type Natriuretic Peptide 7368 pg/ml (0-1800) Test 12/15/16 15:32 12/15/16 15:45 Bedside Hemoglobin 11.6 g/dl (14.0-18.0) Bedside Hematocrit 34 % (42-52) Bedside Sodium 134 mEq/L (135-144) Bedside Potassium 4.1 mEq/L (3.3-5.0) Bedside Chloride 98 mEq/L (101-112) Bedside Total CO2 25 mEq/l (24-31) Anion Gap 16.0 mmol/L (16-25) Bedside Blood Urea Nitrogen 74 mg/dl (7-18) Bedside Creatinine 2.2 mg/dl (0.6-1.3) Bedside Glucose (other) 118 mg/dl (70-99) Bedside Ionized Calcium (Mery) 1.27 mmol/l (1.12-1.32) Urine Color YELLOW Urine Appearance CLEAR (CLEAR) Urine pH 5.0 (4.5-7.5) Urine Specific [place] 1.012 (1.000-1.030) Urine Protein NEG (NEG) Urine Glucose (UA) NEG (NEG) Urine Ketones NEG (NEG) Urine Occult Blood NEG (NEG) Urine Nitrite NEG (NEG) Urine Bilirubin NEG (NEG) Urine Urobilinogen NEG (NEG) Urine Leukocyte Esterase NEG (NEG) Date/Time Source Procedure Growth Status 12/15/16 00:00 Nasal MRSA DNA Surveillance Screen - Final Specimen Positive for MRSA by DNA Probe Complete Laboratory results reviewed by me Medications Administered Medications (Trade) Dose Ordered Sig/Reny Route Start Time Stop Time Status Last Admin Dose Admin Sodium Chloride 1,000 ml @ 125 mls/hr Q8H STAT IV 12/15/16 15:11 12/15/16 20:01 DC 12/15/16 15:39 125 MLS/HR Dopamine HCl/ Dextrose (DOPamine 400MG / D5W) 0 ml @ 0 mls/hr Q0M STAT IV 12/15/16 15:30 12/15/16 15:31 DC 12/15/16 15:38 24 MLS/HR Levofloxacin (Levaquin / D5W) 750 mg NOW STAT IV 12/15/16 16:15 12/15/16 16:16 DC 12/15/16 17:44 750 MG Piperacillin Sod/ Tazobactam Sod (Zosyn Iv) 4.5 gm NOW STAT IV 12/15/16 16:15 2/26/17 16:16 DC 12/15/16 17:06 4.5 GM ECG Indication: other (unresponsive) Rate (beats per minute): 46 Rhythm: other (Wide QRS) Findings: T-wave inversion (Inferior), other (Nonspecific atrial ventricular block) Change: 2nd ECG: Sinus rhythm, rate of 73, nonspecific atrial ventricular block, T wave inversion inferiorly, no ectopy When compared to previous the rate has increased by 27. ED Course 1509: The patient was evaluated in room B1. A complete history and physical exam was performed. 1511: Sodium Chloride 1,000 ml @ 125 mls/hr IV. 1518: Pacer applied and dialed in capture via ultrasound. 1520: I discussed with the family the current state of the patient. 1530: Dopamine HCl/ Dextrose 0 ml @ 0 mls/hr IV. 1545: I spoke with Dr. Rivera - Cardiology about the patient. He would like imaging and lab results back first before he evaluates the patient. 1615: Zosyn Iv 4.5 gm IV, Levaquin / D5W 750 mg IV. 1625: I reevaluated the patient. He is doing better. Off the pacer and blood pressure is stable. 1643: I spoke with Dr. Jaime - Radiology about the patient's imaging results. He said head and neck CT look okay. Patient's abdominal CT is hard to interpret due to diffuse infiltration, pancreatitis could be an explanation. Pneumonia in left base found. 1646: Discussed the patient's case with Dr. Carlos LAWRENCE. The patient will be evaluated for further treatment and disposition. 1655: I updated the patient and family on plan for admission and also test results. Medical Decision Triage Nursing notes reviewed. The patient's presentation and history were concerning for altered mental status. Etiologies such as metabolic, infection, hypo/hyperglycemia, electrolyte abnormalities, cardiac sources, intracerebral event, toxicologic, neurologic, as well as others were entertained. Patient was evaluated. Taken to call the patient and directed the supervising floorperson for treatment. The patient was hypoglycemic and this was corrected but his mental status did not improve. He was placed on a transcutaneous pacer and was given IV fluids. He still had hypertension. The patient had effusion, infiltrate, and edema on chest x-ray. Left leg x-ray revealed no evidence of fracture. ECG showed a wide-complex rhythm. Prehospital ECG showed heart block. His rate was still bradycardic when the pacer was removed. He was started again on pacing. Limited bedside ultrasound of his heart revealed normal hypokinesis and bradycardia. No effusion present. The patient had no free fluid within the abdomen. Additional IV fluids were given. The patient had some improvement of his blood pressure with pacing. Family was present for this and help with the decision process as the patient initially was because it DNR/DNI. They felt trying limited measures would be reasonable. The patient was started on IV dopamine and this was titrated. He had a consultation placed with interventional cardiology and they are standing by if a pacemaker is necessary. Patient was taken to CT imaging. His head and neck CT did not acute findings. He did have some general information in the upper abdomen. His blood work didn't reveal an elevated lipase consistent with pancreatitis. He also had acute kidney injury. The patient had an elevated BNP concerning for CHF. He also has JVD lower extremity edema. The patient's hypoglycemia did not return. He had improvement of his mental status. He was noted to have a heart rate greater than the pacer set rate. Pacer was discontinued. Repeat ECG revealed a normal sinus rhythm. The patient's troponin was negative but his CK-MB is slightly elevated. His CT scan of the abdomen also showed findings concerning for a pneumonia. The patient is pancytopenic and neutropenic. He was cultured and given Zosyn. The patient numerous medical issues on each one individually. Overall he seemed to get much better and was responsive to basic questioning. Internal medicine was consulted and evaluated the patient in the Emergency Room. He was admitted to the ICU for further care. ThE chart was completed utilizing Guide Speech voice recognition software. Grammatical errors, random word insertions, pronoun errors, and incomplete sentences are an occasional consequence of this system due to software limitations, ambient noise, and hardware issues. Any formal questions or concerns about the content, text, or information contained within the body of this dictation should be directly addressed to the physician for clarification. Consults Time Called: 1543 Consulting Physician: Dr. Rivera - Cardiology Returned Call: [address] Miguel Hunt about the patient. He would like imaging and lab results back first before he evaluates the patient. Additional Consults: Time Called: 1641 Consulted Physician: Dr. Jaime - Radiology Returned Call: 1643 Additional Comments: I spoke with Dr. aJime - Radiology about the patient's imaging results. He said head and neck CT look okay. Patient's abdominal CT is hard to interpret due to diffuse infiltration, pancreatitis could be an explanation. Pneumonia in left base found. Time Called: 1643 Consulted Physician: Dr. Gonzalez - [facility] [place] Returned Call: [phone] Additional Comments: Discussed the patient's case. The patient will be evaluated for further treatment and disposition. Impression Primary Impression: Neutropenia Additional Impressions: Hypoglycemia Complete heart block Pneumonia Hypotension Acute renal failure Pancreatitis Critical Care I have personally spent greater than 75 minutes of critical care time in the direct management of this patient. This includes bedside care, interpretation of diagnostic studies, and testing, discussion with consultants, patient, and family members, and other required patient management activities. This 75 minutes is in excess of all separately billable procedures. Scribe Attestation The scribe's documentation has been prepared under my direction and personally reviewed by me in its entirety. I confirm that the note above accurately reflects all work, treatment, procedures, and medical decision making performed by me. Departure Information Dispostion Being Evaluated By Hospitalist Problem Qualifiers
--- NOTE | 2016-12-15 23:25 | HISTORY & PHYSICAL EXAMINATION ---
DATE OF ADMISSION: 12/15/2016 CHIEF COMPLAINT: Unresponsive. HISTORY OF PRESENT ILLNESS: History is unobtainable from the patient partly because for most of the HPI he was unresponsive and does not remember it and partly because whether he is delirious or just not able to hear and see well. He is minimally communicative, trying to voice words in a whisper, but it is unclear exactly what he is saying or it is unclear if he is even understanding what I am talking to him about, but at any rate in discussions with EMS and review of records and in discussion with the daughter and review of outpatient charts, it appears that over the last 2 weeks or so he has had an appearance of hypervolemia, worsening CHF. He was following up with Dr. Mathias in the [facility]. Initially on 12/06/2016, there was a question of whether he was having worsening hypervolemia due to a recent reduction in diuretic therapy, and so with a goal of short-term therapy, he was increased on diuretics, counseled on a low-sodium diet, and had close followup. In that close followup only a few days later, he continued to appear hypervolemic, his weight was unchanged, his diuretics were increased even further, and he was scheduled for close followup again, that was just on 12/11/2016, but then his daughter notes generally he has just had a bit of a failure to thrive appearance over that 2 weeks with a poor appetite, not eating and drinking well, and just being a little bit more lethargic, dyspnea on exertion, although maybe not dyspnea at rest, but otherwise definitely dyspnea on exertion. No notable fevers, chills or sweats that she is aware of. Obviously, the weight gain and edema, but then this morning he was found to be unresponsive, uncertain for how long. He was hypotensive, bradycardic, did not respond to painful stimuli, and was hypoglycemic, blood sugar reported to be 24. Initially whenever he arrived at the ER, he was in complete heart block and had transcutaneous pacing. Overtime, the pacing was turned back and he assumed a regular rhythm and now he is being admitted to the ICU. Separately, he had a fall and some left leg pain, and the daughter did note that through the night he was complaining of left leg pain and also over the last couple of weeks he has been a little more easily confused. REVIEW OF SYSTEMS: Again, is unobtainable from the patient and otherwise negative except for as above. PAST MEDICAL HISTORY: Includes osteogenesis imperfecta, coronary artery disease with cardiomyopathy of chronic systolic CHF. His most recent EF in the fall in June was 43% with akinesis of the septal base and base to mid inferior wall, hypokinesis of anterolateral and inferolateral wall. No LVH. Cor pulmonale from his cardiomyopathy, hypertension, mitral valve disease, status post replacement, osteoarthritis, osteoporosis, pulmonary hypertension, rheumatoid arthritis, sleep apnea, mixed obstructive and restrictive lung disease, atrial fibrillation. MEDICATIONS: Tylenol 500 mg q. 4-6 hours p.r.n. pain, aspirin 81 mg daily, Breo 100/25 one inhaled daily, Coreg 6.25 t.i.d., Drisdol 5000 International Units weekly, Flonase 2 sprays each nostril daily, Forteo 20 mcg subcu daily, Lasix currently was 60 mg in the morning and 40 in the afternoon, Plaquenil 200 mg daily, DuoNebs q. 4 hours as needed, melatonin 3 mg at bedtime, metolazone 2.5 mg on Friday and Friday, additional p.r.n. for 3 pounds of weight gain in a day or 5 pounds in a week or increased shortness of breath, milk of magnesia p.r.n., MiraLax p.r.n., multivitamin daily, Nexium 40 mg daily, prednisone 5 mg daily, senna p.r.n. constipation, Synthroid 25 mcg daily. SURGICAL HISTORY: Includes CABG and mitral valve replacement. FAMILY HISTORY: Mom had coronary disease. Dad committed suicide. SOCIAL HISTORY: Never a smoker, rare alcohol. Lives in the [facility], although generally I believe he is more on the independent side of things. ALLERGIES: LISTED ANTIRHEUMATICS, ATORVASTATIN, CLINDAMYCIN, SULFAMETHOXIZOLE, TRIMETHOPRIM. PHYSICAL EXAMINATION: VITAL SIGNS: Initial vitals showed a temp of 36.3, pulse 47, blood pressure 150/24, 96% on 15 liters/Ambu bag, later he became quite hypotensive with blood pressures in the 60/40 range to as low as 58/36 and has improved to about 90-100/50 range. GENERAL: He awakens, makes reasonable eye contact, and seems to have appropriate attempts at conversation in as much as he will wait until I pause speaking to try to speak in almost a regular conversational flow, but it is really not clear what he is saying. He does not reliably follow commands, although his daughter does note that he is very hard of hearing and does not have his hearing aids in. He is appearing very weak and frail. HEENT: Normocephalic, atraumatic. Mucous membranes moist. CARDIOVASCULAR: Very distant without rubs, murmurs or gallops. LUNGS: His right lung shows diffuse coarseness with maybe scattered rales, definitely rhonchi. His left lung has mid lung field rales and diminished air entry at the base. ABDOMEN: Soft, nondistended, nontender. No masses or organomegaly. EXTREMITIES: Without clubbing. He does have distal cyanosis in both of his fingers and toes, although his daughter relates that she believes this is chronic. He has slow capillary refill. He has probably 3 to 4+ pitting edema bilateral lower extremities. SKIN: Shows no rashes, no pallor or icterus. NEUROLOGIC: Shows cranial nerves II-XII to be grossly intact and gross motor and sensory intact as best can be ascertained given his inability to follow commands. MENTAL STATE: As above. Really unable to be truly assessed. MUSCULOSKELETAL: Full exam is almost impossible due to his positioning and medical condition, but no gross lesions are apparent. LABORATORIES AND DIAGNOSTICS: His CBC shows a white count of 1.66, hemoglobin 11.6, platelets 40. Total absolute neutrophil count is 0.86. Of note, about 6 weeks ago, a CBC was checked that showed a very mild degree of pancytopenia as his white count was 4.74, hemoglobin 13 and platelets 118. So while the pancytopenia is not brand new, it certainly appears to be subacute but acutely far worse. His PT is 12.7, INR 1.2, PTT 41.1. Fibrinogen 408, FDP greater than 40, D-dimer 7100. Blood gas shows a pH of 7.13, pCO2 of 70, pO2 of 61. Complete metabolic panel with sodium 138, potassium 4.2, chloride 101, CO2 26, BUN 77, creatinine 2.3 with a baseline about a point lower, calcium 8.6, glucose 117, magnesium 2.6, total bili 0.4 with a direct of 0.2, AST 43, ALT 35, alkaline phosphatase 83. CK total 138 with an MB of 17.5, a ratio of 12.7, troponin of 0.030. Total protein 4.8, albumin 1.9, lipase 7213. Procalcitonin 2.12. TSH 1.99. Random cortisol 54.14. Urinalysis yellow, clear, specific gravity 1.012. Head CT shows no acute intracranial findings, does show a similar degree of maxillary, ethmoid and frontal sinus opacification and air-fluid levels in the right frontal and maxillary sinus. Chest x-ray report available. For some reason, the film is not able to be viewed, but per radiology's review, there is blunting of the right costophrenic angle, diffuse interstitial thickening and bilateral opacities, increased since October, lower lung opacities suggest scarring or atelectasis, and the impression is that there is an increase in diffuse interstitial thickening reflecting either pulmonary edema or an infectious process. Tib-fib x-ray shows no acute fracture. C-spine CT shows no acute fracture, severe arthrosis of C2-C3 facet, moderate to severe multilevel degenerative changes, mild leftward curvature of the cervical spine which may be positional gas at the level of the foramen magnum, likely in venous location, no prevertebral edema. Craniocervical junction intact. CT abdomen and pelvis showing visualized portions of the lower chest demonstrating moderate cardiomegaly, extensive coronary calcification, lingular, left lower lobe airspace opacity, right lower lobe opacity favoring atelectasis. No pneumatosis, free air or portal venous gas. Exam significantly compromised by lack of IV and oral contrast as well as paucity of intraabdominal fat and motion artifact, but there are small gallstones within the gallbladder. Gallbladder mildly distended, indistinctness of the gallbladder wall, diffuse mesenteric infiltration present. Unenhanced images of the liver, spleen, kidneys unremarkable. No hydronephrosis. No evidence of bowel obstruction. There may be wall thickening of several small-bowel loops, suboptimally assessed on this exam. A Nicolas balloon is present. Several small-bowel loops are noted within the right inguinal hernia without evidence of bowel obstruction. Multiple lumbar spine compression fractures, likely old. Anasarca noted. Peripancreatic infiltration, prostate enlarged. The conclusion being that the indistinctness of the gallbladder wall could reflect acute cholecystitis, the mesenteric infiltration with peripancreatic infiltration could be either volume overload or acute pancreatitis, and the lung findings could reflect pneumonia or atelectasis. EKG appears to be sinus with a first-degree AV block and the nonspecific intraventricular conduction delay as well as inferior flipped T-waves. The complete heart block tracing is unavailable at this time, but I discussed the case multiple times with Dr. Han in the ER. ASSESSMENT AND PLAN: 1. Unresponsive. This appears to be multifactorial, probably from his shock state, from his hypoglycemia, and from respiratory illness that is likely multifactorial as well as possibly an element of encephalopathy. 2. Acute hypoxic respiratory failure. This appears to be on the basis of a decompensation of his acute systolic congestive heart failure (see below) as well as a presumed healthcare-associated pneumonia (see below). Obviously, we will need to maintain supportive care, treat the underlying causes, and maintain oxygenation as well as possible. He is a do not intubate in review of old records and discussion with his daughter. 3. Acute hypercapnic respiratory failure. This is likely a function of his pneumonia and baseline chronic obstructive pulmonary disease. See below otherwise. 4. Acute decompensation of chronic systolic congestive heart failure. In review of outpatient records, it appears that the appropriate efforts were being made to treat his decompensating congestive heart failure, but in spite of that, no improvements were being made in his volume status with the revelation of his complete heart block that did spontaneously resolve. I suspect he was starting to have bradyarrhythmia issues that were lowering his cardiac output, making the congestive heart failure much more refractory to treat. At this point in time, he is maintaining a sinus rhythm. He is too hypotensive to diurese further but hopefully maintaining a reasonable rate, we will maintain in a forward flow. He has been placed on BiPAP, that should hopefully help with the pulmonary edema. He will be having an echocardiogram done following cardiac enzymes, having cardiology see and evaluate him, and when or if he is stable enough to resume diuretic therapy, we will do so. 5. Healthcare-associated pneumonia. He has been started on Levaquin in the ER. His MRSA nares has just come back positive. Between his renal failure and the fact that it would be a MRSA pneumonia, we will start him on linezolid and consult infectious disease for ongoing tailoring of therapy. It is unclear if he is septic from this and that is causing shock or if his shock state was from the complete heart block, probably elements of both. 6. Complete heart block. This appears to have spontaneously resolved for now. We will continue having external pacer pads on him. Cardiology is aware of the situation and has been consulted. Should he survive this acute episode, obviously he will require permanent pacemaker placement. Continue to follow his rhythms, keep the pacer pads in place and obviously use immediately if he goes back into complete heart block. If anything is refractory, he will need a transvenous pacer placed. 7. Acute renal failure. This is due to the shock state and maintaining perfusion should help. 8. Shock. As above noted, it is unclear if it is related to his complete heart block or to sepsis or both. Right now he is on dopamine. Continue with pressor support as needed. 9. Chronic steroid-dependent rheumatoid arthritis. Fortunately, his stat cortisol is adequate. We will be giving him steroids related to his chronic obstructive pulmonary disease and obviously holding his prednisone. 10. Chronic obstructive pulmonary disease exacerbation with hypercapnia. He appears to have mixed restrictive and obstructive lung disease based on pulmonary followup as an outpatient. We will be using BiPAP, nebs and steroids, and following his clinical status closely. 11. Deep venous thrombosis prophylaxis, heparin subcu. 12. Pancytopenia. Checking a DIC panel. Fortunately, it does not appear that this is sepsis with disseminated intravascular coagulation. More than likely, given that he had a very mild, almost subtle pancytopenia about 6 weeks ago, probably he has had a slowly worsening process likely in the bone marrow. We will have hematology/oncology see him, check a retic count and a peripheral smear, and continue to follow his counts. Obviously, right now he needs to be on neutropenic precautions as antibiotics for the pneumonia also would suffice for a neutropenic sepsis type coverage. 13. Questionable gas seen in veins on the CT of his C-spine, probably artifact from IV placement. Continue to follow him clinically. 14. Recent neck weakness. He appears to have a lot of arthritis; however, nothing appears grossly abnormal with his neck either on exam or on CT as far as an acute problem. I suspect it is probably from a head carried forward posture and severe weakness from what is going on that has led to his head flopping forward that his daughter has noticed. 15. Hypothyroidism. Continue Synthroid. If he is not able to take p.o., we will need to give it IV. Total time at least 75 minutes in critical care time. I did discuss his code status with his daughter as well and he is level 5, do not resuscitate, do not intubate.
[2016-12-16] VITALS (16 sets, daily range): BP systolic 78–115; BP diastolic 24–66; PULSE 70–93; TEMP 35.1–38.2; O2SAT 87–98
--- NOTE | 2016-12-16 00:29 | CRITICAL CARE CONSULTATION ---
DATE OF CONSULTATION: 12/15/2016 CHIEF COMPLAINT: Altered mental status. HISTORY OF PRESENT ILLNESS: This is an 81-year-old gentleman who was wheeled into the ICU earlier this evening. There is still no documentation from the Emergency Department and I did not receive any communication from them. From what I have been able to gather from the chart and from his daughter, he is a resident in the independent living portion of [facility], and over the past week or so, his daughter has noticed that he has not been as bright and alert as usual. She has seen him becoming progressively less alert and also noticed he had more drooping of his head. His appetite has been poor, although that is not unusual for him. He may have been receiving some Lasix due to lower extremity swelling recently as well. His daughter tried to convince him to go to the part of [facility] which provides nursing care and the patient refused until yesterday when he fell at home. He stayed in the nursing portion of [facility] last night and reportedly was awake until around 4:30 in the morning. When evaluations were done later in the day, he was deemed to be unresponsive. At that time, his heart rate was 46 and blood pressure 60/30. He was felt to be in complete heart block and was placed on a transcutaneous pacemaker. His blood sugar was 24 and oxygen saturation 89. A bag valve mask was used and at some point EMS was summoned. He was given D10 on the way to the hospital as well as 700 mL of IV fluid. It appears that he was on the transcutaneous pacemaker in the Emergency Department for a period of time and was taken off around 4:30 this afternoon. At that time, he had a heart rate of 71. I do not see any strips on the chart and the EKG from 3:00 shows normal sinus rhythm with inferolateral T-wave inversions and a corrected QT interval of 478 milliseconds. He was eventually transferred to the intensive care unit after receiving Zosyn and Levaquin as well as dopamine. He had multiple radiographic studies such as head CT, chest x-ray, tib-fib x-ray, C-spine x-ray as well as abdominopelvic CT. He was transferred to the intensive care unit on a face mask and initial arterial blood gas showed a pH of 7.13, pCO2 of 70, pO2 of 61, HCO3 of 23. He was immediately placed on BiPAP and requires an inspiratory pressure of 16 in order to achieve tidal volumes of 300 mL. He is a do not resuscitate code status. 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 PAST SURGICAL HISTORY: Status post coronary artery bypass grafting surgery and MVR. ALLERGIES: LIPITOR CAUSES A RASH; CLEOCIN, RASH; ANTIRHEUMATICS; NONSTEROIDALS; BACTRIM CAUSES FEVER. SOCIAL HISTORY: He has never smoked and drinks alcohol rarely. FAMILY HISTORY: Significant for mother with coronary artery disease, father committed suicide. REVIEW OF SYSTEMS: Limited due to the patient's mental status. PHYSICAL EXAMINATION: VITAL SIGNS: Temperature 32, heart rate 71, respiratory rate 25-37, blood pressure 60s-90s/50s, oxygen saturation 95%, BiPAP 16/8, 70%. HEENT: Right pupil is irregular, left is round, both are minimally reactive. Oral examination is deferred due to the BiPAP mask being in place. NECK: No adenopathy, no bruits. HEART: Regular, distant. 2/6 murmur at the apex. LUNGS: Bibasilar rales, occasional rhonchi, no wheezes. ABDOMEN: Soft, nontender, nondistended, hypoactive bowel sounds. EXTREMITIES: Warm with trace to 1+ pretibial edema, 2+ edema in the left foot, 1+ in the right. Both legs are mottled around the knees. SKIN: Shows an erythematous patch over the left thigh and a large ecchymosis over the left lateral lower leg. There may be petechiae scattered throughout. NEUROLOGIC: The patient will nod his head to simple questions and is hard of hearing. He does not follow commands. LABORATORY DATA: pH 7.13, pCO2 of 70, pO2 of 61, HCO3 of 23. White blood cell count 1.66, hemoglobin 11.6, hematocrit 33.5, platelets 40. PT 12.7, INR 1.2, PTT 41.1. D-dimer 7100. Fibrin degradation products greater than 40, fibrinogen 408. Sodium 134, potassium 4.1, chloride 98, CO2 of 25, BUN 74, creatinine 2.2, blood sugar 118. Random cortisol 54.14. Troponin I 0.03. Ionized calcium 1.27. Lactic acid 1.53. Lipase 7213. Procalcitonin 2.12. TSH 1.99. Magnesium 2.6. RADIOGRAPHIC DATA: CT brain, opacified left maxillary, ethmoid and frontal sinuses, similar to exam of 10/2016, with interval development of air-fluid levels within the right frontal and maxillary sinuses. Chest x-ray: Diffuse interstitial thickening and bilateral opacities which may reflect pulmonary edema or infectious process. Tib-fib x-ray shows no evidence of fracture. C-spine CT, no acute fracture or subluxation, moderate to severe multilevel degenerative disc disease. CT of the abdomen and pelvis, gallstones and indistinct gallbladder wall, diffuse mesenteric infiltration with peripancreatic infiltration, apparent wall thickening and several small-bowel loops which could be due to underdistention or represent nonspecific enteritis. No free air. Left lower lobe lingular opacities. Venous Doppler study bilateral lower extremities, no evidence of DVT. OUTPATIENT MEDICATIONS: Acetaminophen, aspirin, Dulcolax, carvedilol, vitamin D, fluticasone furoate/vilanterol, Lasix, Plaquenil, DuoNeb, levothyroxine, milk of magnesia, metolazone, multivitamin, potassium chloride, prednisone, Fleet enema, Forteo. PRESENT MEDICATIONS: Acetaminophen, albuterol, DuoNeb, Dulcolax, chlorhexidine, dopamine, Levophed, Levaquin, linezolid, Solu-Medrol, norepinephrine, nystatin, Zofran, normal saline. IMPRESSION: 1. Acute hypoxic hypercapnic respiratory failure, now on BiPAP 04/06, 70%. 2. Reported complete heart block, I have not seen any strips to verify this, but he definitely was on a transcutaneous pacemaker for a period of time. He is also on carvedilol which could be affecting it along with his acidosis. 3. Acute kidney injury, likely complicated by his complete heart block and hypotension. 4. Possible left lingular pneumonia in the face of severe obstructive and restrictive lung disease. 5. Pancreatitis. 6. Metabolic encephalopathy which is multifactorial. 7. Thrombocytopenia and leukopenia, not quite neutropenic at this point. Part of this may be secondary to sepsis. 8. Hypothermia. 9. Status post recent fall with right lower extremity ecchymosis. 10. History of cardiomyopathy, ejection fraction 30-35% in 01/2015. 11. Decubitus ulcer on the buttocks. 12. Hypoglycemia, treated with D10 in the field. 13. History of paroxysmal atrial fibrillation. 14. History of rheumatoid arthritis. 15. Chronic steroid use. 16. History of coronary artery disease, status post coronary artery bypass grafting surgery and mitral valve replacement. 17. Sinusitis by CT scan. PLAN: 1. Neurologic: Avoid sedating medications that will impair his respiratory drive. 2. Cardiovascular: Support blood pressure with Levophed and try to back off the dopamine now that he has a relatively normal heart rate and is back in sinus rhythm. Hold carvedilol and trend troponins. Echocardiogram has been ordered as has a cardiology consult. He has a right upper extremity PICC line in place from this admission. 3. Pulmonary: Continue bronchodilators and intravenous corticosteroids have been ordered. Support on BiPAP and follow arterial blood gases. His family has elected to refrain from placing an arterial line. He is a do not resuscitate code status. He will not be intubated. 4. Gastrointestinal: Maintain n.p.o. status and provide GI prophylaxis. Follow lipase. 5. Renal: Avoid nephrotoxins and appropriately dose medications with the assistance of pharmacy. 6. Endocrine: Hold levothyroxine as he is n.p.o. Check blood sugars q. 6 hours. 7. Infectious Disease: Blood cultures have been drawn. Send a urine culture. I do not think he is producing any sputum or could even follow directions to provide us a sample. 8. Hematology: Watch for signs of bleeding and trend platelets. The hematology service has been consulted. Consider Neupogen. He is not a candidate for pharmacologic DVT prophylaxis secondary to his low platelets. I am reluctant to put SCD on left leg which has a very very large bruise and probably a fungal infection on the skin. I discussed his care with his daughter and son separately. This man has multisystem organ failure and I am concerned that he may continue to deteriorate and possibly even tonight. I am going to try to establish more firm goals of care. Please call me with any questions or concerns. Critical care time 90 minutes.
[2016-12-16] MEDS: ALBUMIN HUMAN 25% 12.5 GM/50 ML VIAL IV SCH ×2 (01:53→05:26)
[2016-12-16] MEDS ORDERED: SODIUM BICARB 8.4% INJ 50 MEQ/50 ML SYR IV ONE ×2 (02:10→06:26)
[2016-12-16] MEDS ORDERED: SODIUM BICARB 8.4% INJ 50 MEQ/50 ML SYR IV STA (02:10)
[2016-12-16 02:18] LABS: IPAP 16; ISTAT ALLEN TEST Pass; ISTAT ARTERIAL BLOOD GAS HCO3 17 meq/L (19-24); ISTAT ARTERIAL BLOOD GAS PCO2 44 mmHg (35-46); ISTAT ARTERIAL BLOOD GAS PO2 51 mmHg (80-95); ISTAT ARTERIAL BLOOD GAS pH 7.18 (7.35-7.45); ISTAT CARBON DIOXIDE 18 mEq/l (24-31); ISTAT DELIVERY SYSTEM BIPAP; ISTAT FIO2 70 %; ISTAT RATE 12; ISTAT SITE R Radial
[2016-12-16] MEDS ORDERED: SOD CHLOR 14.6% 2.5MEQ/ML 38.5 MEQ, SODIUM BICARBONATE 8.4% INJ 150 MEQ in STERILE WATE... IV SCH (02:30)
[2016-12-16] MEDS ORDERED: ALBUMIN HUMAN 25% 12.5 GM/50 ML VIAL IV STA (02:32)
[2016-12-16] MEDS: METHYLPREDNISOLONE IV 80 MG in SYRINGE 0 ML IV SCH (03:30)
[2016-12-16] MEDS ORDERED: DEXTROSE 50% 50 ML SYR ONE (04:31)
[2016-12-16 04:39] LABS: ALB/GLOB RATIO 1.1 (0.9-2); BUN/CREATININE RATIO 29.8 (10-20); CALCIUM 8.1 mg/dl (8.5-10.1); CREATININE 2.5 mg/dl (0.60-1.40); MAGNESIUM 2.3 mg/dl (1.8-2.4); PHOSPHORUS 5.1 mg/dl (2.5-4.9); POTASSIUM 5.4 mmol/L (3.5-5.1)
[2016-12-16] MEDS ORDERED: GLUCAGON FOR INJ 1 MG VIAL SQ STA (04:44)
[2016-12-16 04:55] LABS: HEMATOCRIT 40.8 % (42-52); MEAN CELL VOLUME 91.1 fL (80-100); MEAN CORPUSCULAR HEMOGLOBIN 30.6 pg (25-34); MEAN CORPUSCULAR HGB CONC 33.6 g/dl (32-36); PLATELET COUNT 27 K/uL (130-400); RED BLOOD COUNT 4.48 M/uL (4.7-6.1); WHITE BLOOD COUNT 1.29 K/uL (4.8-10.8)
[2016-12-16 04:56] LABS: COMPLETE YES; ECHINOCYTES 1+; EOSINOPHIL % 1.5 %; GIANT PLATELETS 3+; LYMPH ABS # 0.08 K/uL (1.2-3.4); LYMPHOCYTE % 6.2 %; META ABS # 0.24 K/uL (0-0); METAMYELOCYTE % 18.5 %; MYELOCYTE % 3.1 %; NEUTROPHILS % 67.6 %; PLT ESTIMATE SIGNIFIC DECREASED; TOXIC GRANULATION 1+; VACUOLIZATION OCCASIONAL
[2016-12-16] MEDS ORDERED: GLUCAGON FOR INJ 1 MG VIAL SQ PRN (05:00)
[2016-12-16] MEDS ORDERED: DEXTROSE 50% 50 ML SYR IV PRN (05:00)
[2016-12-16] MEDS ORDERED: D5W IV SCH (05:00)
[2016-12-16] MEDS ORDERED: SODIUM BICARBONATE IV SCH (05:00)
[2016-12-16] MEDS ORDERED: [UNRECOGNIZED DRUG - OTHER] IV SCH (05:00)
[2016-12-16] MEDS ORDERED: LEVOTHYROXINE 25 MCG TAB PO SCH (06:00)
[2016-12-16 06:28] LABS: IPAP 16; ISTAT ALLEN TEST Pass; ISTAT ARTERIAL BLOOD GAS HCO3 25 meq/L (19-24); ISTAT ARTERIAL BLOOD GAS PCO2 74 mmHg (35-46); ISTAT ARTERIAL BLOOD GAS PO2 87 mmHg (80-95); ISTAT ARTERIAL BLOOD GAS pH 7.15 (7.35-7.45); ISTAT CARBON DIOXIDE 28 mEq/l (24-31); ISTAT DELIVERY SYSTEM BIPAP; ISTAT FIO2 100 %; ISTAT RATE 12; ISTAT SITE R Radial
[2016-12-16] MEDS ORDERED: NURSING VERBAL MED ORDER ONE ×3 (06:30→07:45)
[2016-12-16] MEDS ORDERED: FUROSEMIDE 40 MG/4 ML VIAL ONE (06:38)
[2016-12-16] MEDS ORDERED: FUROSEMIDE 40 MG/4 ML VIAL IV STA (06:40)
[2016-12-16] MEDS ORDERED: SODIUM BICARBONATE 8.4% INJ 50 MEQ/50 ML VIAL IV ONE (06:45)
[2016-12-16] MEDS ORDERED: MoRPHine SULFATE 2 MG/ML CARP ONE (07:08)
[2016-12-16] MEDS ORDERED: MoRPHine SULF/NSS INJ 1 MG/ML 250 ML BTL ONE (07:09)
[2016-12-16] MEDS: ALBUT/IPRATROP 3MG/0.5MG NEB 3 ML VIAL INH SCH (07:38)
--- NOTE | 2016-12-16 07:49 | DIAGNOSTIC IMAGING REPORT ---
SINGLE VIEW CHEST CLINICAL HISTORY: Hypoxia. FINDINGS: An AP, portable, upright chest radiograph is compared to study dated 12/15/2016 and correlated with chest CT dated 07/16/2016. The examination is severely degraded by portable technique, motion artifact, and patient rotation. A right PICC line is unchanged in position. The patient is status post midline sternotomy. The heart is enlarged and there is atherosclerotic calcification of the thoracic aorta. There are low lung volumes. There is evidence of congestive failure. More focal airspace opacities are seen in the left perihilar region and at the right lung base. Small pleural effusions are identified. No pneumothorax is seen. The skeletal structures are osteopenic. The bony thorax is grossly intact. IMPRESSION: 1. Cardiomegaly with evidence of congestive failure. 2. More focal opacities in the left perihilar region and at the right lung base may represent a component of interstitial edema versus superimposed pneumonia. Clinical correlation will be required. 3. Small pleural effusions are identified. Electronically signed by: Alfredito Velasquez M.D. 12/16/2016 7:48 AM Dictated Date/Time: 12/16/2016 7:46 AM
[2016-12-16] MEDS ORDERED: MORPHINE SULF/NSS 250MG/250ML IV PRN (08:00)
--- NOTE | 2016-12-16 08:32 | Cardiology Follow-Up ---
Cardiology Follow-Up Date of Service Dec 16, 2016. Cardiology Follow-Up I presented to ICU this morning to evaluate Mr. Covarrubias. The decision had been made for comfort care. He had prior to me entering the room. I offered condolences to his son and daughter who were present at the bedside. No formal consultation was done.
[2016-12-16] MEDS ORDERED: LINEZOLID / D5W 600 MG in PREMIXED IN D5W 300 ML IV SCH (09:00)
[2016-12-16] MEDS ORDERED: ASPIRIN 81 MG ECTAB PO SCH (09:00)
[2016-12-16] MEDS ORDERED: HYDROXYCHLOROQUINE SULFATE 200 MG TAB PO SCH (09:00)
[2016-12-16] MEDS ORDERED: MULTIVITAMIN TAB PO SCH (09:00)
--- NOTE | 2016-12-16 09:59 | Critical Care Progress Note ---
Critical Care Progress Note Date of Service Dec 16, 2016. Attending Subjective He continued to clinically decline. Multisystem failure. Respiratory failure and hypotension. Spoke with family. He desired comfort measures. In the setting of above and care wishes comfort care indicated. Appropriate comfort instituted. Family at best side. Objective Poor perfusion and unresponsive. Preterminal status noted. Assessment & Plan Multisystem failure--comfort care in place. Family at bed side. Critical Care time--60 minutes Data Medications: Current Inpatient Medications Medications (Trade) Dose Ordered Sig/Reny Route Start Time Stop Time Status Last Admin Dose Admin Levofloxacin/Prmx (Levaquin / D5W/ Premixed D5W) 150 ml @ 100 mls/hr Q48H IV 12/17/16 18:00 12/21/16 23:59 Acetaminophen (Tylenol Tab) 650 mg Q4H PRN PO 12/15/16 19:45 01/14/17 19:44 Bisacodyl (Dulcolax Tab) 10 mg DAILY PRN PO 12/15/16 19:45 01/14/17 19:44 Albuterol/ Ipratropium (Duoneb) 3 ml QIDR INH 12/15/16 20:00 01/14/17 19:59 12/16/16 07:38 3 ML Miscellaneous Information (Order Awaiting Action) 1 ea QS N/A 12/16/16 00:00 01/15/17 00:00 Albuterol Sulfate 2.5 mg 2.5 mg Q2HWA PRN INH 12/15/16 19:45 01/14/17 19:44 Methylprednisolone Sodium Succinate/ Syringe (Solu-Medrol IV/ Syringe) 1.28 ml @ 1.5 mls/min Q8H IV 12/15/16 20:00 01/14/17 19:59 12/16/16 03:30 1.5 MLS/MIN Levofloxacin (Consult) 1 ea UD PRN N/A 12/15/16 21:00 01/14/17 20:59 Chlorhexidine Gluconate (Peridex Oral Soln) 15 ml BID MT 12/15/16 21:00 01/14/17 20:59 12/15/16 21:34 1 ML Nystatin 1 appln 1 appln BID EXT 12/15/16 21:00 01/14/17 20:59 12/15/16 21:34 1 APPLN Dobutamine HCl (DOBUTamine / D5W) 250 ml @ 0 mls/hr Q0M PRN IV 12/15/16 21:00 01/14/17 20:59 Ondansetron HCl 4 mg 4 mg Q6H PRN IV 12/15/16 21:15 01/14/17 21:14 Norepinephrine Bitartrate 8 mg/ Dextrose 508 ml @ 0 mls/hr Q0M PRN IV 12/15/16 21:08 01/14/17 21:07 Linezolid/Prmx (Zyvox / D5W/ Premixed D5W) 300 ml @ 300 mls/hr Q12 IV 12/16/16 09:00 12/23/16 08:59 Heparin Sodium (Porcine) 5 ml 5 ml PRN PRN FLUSH 12/15/16 21:30 01/14/17 21:29 Acetaminophen 100 ml @ 400 mls/hr Q8H PRN IV 12/15/16 21:30 01/14/17 21:29 Dopamine HCl/ Dextrose (DOPamine 400MG / D5W) 250 ml @ 0 mls/hr Q0M PRN IV 12/15/16 22:15 01/14/17 22:14 Albumin Human (Albumin 25%) 25 gm Q4H IV 12/16/16 01:45 12/19/16 01:44 12/16/16 05:26 25 GM Dextrose (Dextrose 50% 50ML Syringe) 25-50ML OF 50% DW IV FOR... UD PRN IV 12/16/16 05:00 01/15/17 04:59 Glucagon 1 mg 1 mg UD PRN SQ 12/16/16 05:00 01/15/17 04:59 Sodium Bicarbonate 150 meq/Dextrose/ Sodium Chloride 1,150 ml @ 125 mls/hr Q9H12M IV 12/16/16 05:00 01/15/17 04:59 12/16/16 05:10 125 MLS/HR Morphine Sulfate/ Dextrose (Morphine Sulf/ Nss 250MG/250ML) 250 ml @ 0 mls/hr Q0M PRN IV 12/16/16 08:00 12/30/16 07:59 I & O: 24-Hour Column 12/16/16 08:00 Intake Total 2747 ml Output Total 15 ml Balance 2732 ml Vital Signs: Date Time Temp Pulse Resp B/P Pulse Ox O2 Delivery O2 Flow Rate FiO2 12/16/16 07:38 93 39 BiPAP/CPAP 70 12/16/16 06:00 38.1 75 34 96 12/16/16 06:00 70 91 100 12/16/16 05:59 38.1 75 40 78/50 96 12/16/16 05:12 38.2 77 42 115/51 96 12/16/16 05:00 38.2 90 38 95 12/16/16 04:14 92 BiPAP 70 12/16/16 04:00 38.0 79 32 98/30 95 12/16/16 03:05 37.4 78 46 95/52 98 12/16/16 03:00 37.3 79 29 98 12/16/16 02:00 36.4 75 35 98/24 87 12/16/16 01:32 72 90 100 12/16/16 01:09 35.9 77 24 85/66 95 12/16/16 01:00 35.8 76 30 93 12/16/16 00:21 35.2 86 26 109/58 98 12/16/16 00:16 35.1 85 40 96 12/16/16 00:00 92 BiPAP 70 12/15/16 23:59 34.9 87 35 101/55 94 12/15/16 23:46 34.7 85 32 91/43 94 12/15/16 23:30 34.4 89 40 106/66 94 12/15/16 23:14 34.2 85 35 125/57 99 12/15/16 22:59 33.9 86 37 126/70 95 12/15/16 22:44 33.7 87 24 109/73 95 12/15/16 22:44 33.7 87 24 109/73 95 12/15/16 22:30 33.5 83 28 97 12/15/16 22:29 33.5 82 29 110/86 98 12/15/16 22:15 70 39 98 BiPAP/CPAP 70 12/15/16 22:14 33.3 80 33 117/58 97 12/15/16 22:00 33.2 76 42 96 12/15/16 21:59 33.2 76 39 94/54 95 12/15/16 21:44 33.0 73 37 96/57 96 12/15/16 21:42 80 98 70 12/15/16 21:38 32.9 77 36 87/48 98 12/15/16 21:29 32.8 76 34 /36 91 12/15/16 21:22 32.7 67 31 92/47 94 12/15/16 21:14 32.6 65 33 53/40 99 12/15/16 21:08 32.5 66 27 68/34 93 12/15/16 21:07 32.5 67 28 68/37 92 12/15/16 21:00 32.4 68 19 94 12/15/16 20:14 32.0 71 37 82/57 95 12/15/16 20:00 92 BiPAP 70 12/15/16 20:00 32.0 71 29 93 12/15/16 19:59 32.0 73 26 90/60 100 12/15/16 19:44 74 33 98/58 97 12/15/16 19:29 72 25 99/54 95 12/15/16 19:21 75 93 70 12/15/16 19:14 77 23 102/49 93 12/15/16 19:00 76 22 95 12/15/16 18:31 72 20 90/50 95 Non-Rebreather 15.0 12/15/16 18:00 36.3 68 34 104/60 96 12/15/16 17:49 104/60 96 Non-Rebreather 12/15/16 17:44 68 34 95 Non-Rebreather 12/15/16 17:39 99/60 12/15/16 17:34 68 31 92 Non-Rebreather 12/15/16 17:29 36.3 24 106/56 12/15/16 17:24 68 30 97 Non-Rebreather 12/15/16 17:19 106/60 12/15/16 17:14 70 35 99 Non-Rebreather 12/15/16 17:09 69 30 104/58 97 Non-Rebreather 12/15/16 16:58 101/61 12/15/16 16:54 70 30 96 Non-Rebreather 12/15/16 16:52 101/52 12/15/16 16:39 71 28 101/62 96 Non-Rebreather 12/15/16 16:34 72 24 96 Non-Rebreather 12/15/16 16:29 74 28 96 Non-Rebreather 12/15/16 16:28 104/56 12/15/16 16:24 72 34 94 Non-Rebreather 12/15/16 16:19 95/47 12/15/16 16:18 81 15 94 Non-Rebreather 12/15/16 16:13 73 35 98 Non-Rebreather 12/15/16 16:12 92/46 12/15/16 15:45 66/45 12/15/16 15:43 80 30 Ambu-Bag 12/15/16 15:40 61/29 12/15/16 15:38 79 41 60/40 92 Ambu-Bag 12/15/16 15:34 58/36 12/15/16 15:33 62 32 96 Ambu-Bag 12/15/16 15:29 46/30 12/15/16 15:28 58 34 93 Ambu-Bag 12/15/16 15:25 81/45 12/15/16 15:25 92 Ambu-Bag 15.0 12/15/16 15:23 40 30 94 Ambu-Bag 12/15/16 15:21 12/15/16 15:20 44 65/42 94 Ambu-Bag 12/15/16 15:18 67 22 96 Ambu-Bag 12/15/16 15:17 47 12/15/16 15:14 65/42 12/15/16 15:12 150/24 Laboratory Results: Last 24 Hours Test 12/15/16 15:25 12/15/16 15:26 12/15/16 15:28 12/15/16 15:31 White Blood Count 1.66 K/uL Red Blood Count 3.80 M/uL Hemoglobin 11.6 g/dL Hematocrit 33.5 % Mean Corpuscular Volume 88.2 fL Mean Corpuscular Hemoglobin 30.5 pg Mean Corpuscular Hemoglobin Concent 34.6 g/dl Platelet Count 40 K/uL Mean Platelet Volume 12.0 fL RDW Standard Deviation 50.6 fL RDW Coefficient of Variation 15.8 % Nucleated RBC Absolute Count (auto) 0.10 K/uL Neutrophils % (Manual) 51.8 % Lymphocytes % (Manual) 3.4 % Monocytes % (Manual) 0.9 % Eosinophils % (Manual) 1.7 % Metamyelocytes % 31.9 % Myelocytes % 10.3 % Nucleated Red Blood Cells % 5.7 % Neutrophils # (Manual) 0.86 K/uL Total Absolute Neutrophils 0.86 K/uL Lymphocytes # (Manual) 0.06 K/uL Total Absolute Lymphocytes 0.06 K/uL Monocytes # (Manual) 0.01 K/uL Eosinophils # (Manual) 0.03 K/uL Metamyelocytes # 0.53 K/uL Myelocytes # 0.17 K/uL Hyposegmented Neutrophils 1+ Toxic Granulation 2+ Toxic Vacuolation 1+ Platelet Estimate DECREASED Large Platelets 1+ Absolute Reticulocyte Count 0.04 10^6/uL Percent Reticulocyte Count 1.0 % Prothrombin Time 12.7 SECONDS Prothromb Time International Ratio 1.2 Activated Partial Thromboplast Time 41.1 SECONDS Partial Thromboplastin Ratio 1.6 Sodium Level 138 mmol/L Potassium Level 4.2 mmol/L Chloride Level 101 mmol/L Carbon Dioxide Level 26 mmol/L Anion Gap 11.0 mmol/L Blood Urea Nitrogen 77 mg/dl Creatinine 2.30 mg/dl Estimated GFR () 29.8 Estimated GFR (Non- 25.7 BUN/Creatinine Ratio 33.4 Random Glucose 117 mg/dl Calcium Level 8.6 mg/dl Magnesium Level 2.6 mg/dl Total Bilirubin 0.4 mg/dl Direct Bilirubin 0.2 mg/dl Aspartate Amino Transf (AST/SGOT) 43 U/L Alanine Aminotransferase (ALT/SGPT) 35 U/L Alkaline Phosphatase 83 U/L Total Creatine Kinase 138 U/L Creatine Kinase MB 17.5 ng/ml Creatine Kinase MB Ratio 12.7 Total Protein 4.8 gm/dl Albumin 1.9 gm/dl Lipase 7213 U/L Procalcitonin 2.12 ng/mL Thyroid Stimulating Hormone (TSH) 1.990 uIu/ml Bedside Glucose 118 mg/dl Bedside Lactic Acid Venous 1.53 mmol/L Bedside Troponin I 0.030 ng/ml [id number] Natriuretic Peptide 7368 pg/ml Test 12/15/16 15:32 12/15/16 15:45 12/15/16 19:08 12/15/16 19:13 Bedside Hemoglobin 11.6 g/dl Bedside Hematocrit 34 % Bedside Sodium 134 mEq/L Bedside Potassium 4.1 mEq/L Bedside Chloride 98 mEq/L Bedside Total CO2 25 mEq/l Anion Gap 16.0 mmol/L Bedside Blood Urea Nitrogen 74 mg/dl Bedside Creatinine 2.2 mg/dl Bedside Glucose (other) 118 mg/dl Bedside Ionized Calcium (Mery) 1.27 mmol/l Urine Color YELLOW Urine Appearance CLEAR Urine pH 5.0 Urine Specific [place] 1.012 Urine Protein NEG Urine Glucose (UA) NEG Urine Ketones NEG Urine Occult Blood NEG Urine Nitrite NEG Urine Bilirubin NEG Urine Urobilinogen NEG Urine Leukocyte Esterase NEG Blood Gas Sample Site R Radial Bedside Blood Gas pH (LAB) 7.13 Bedside Blood Gas pCO2 (LAB) 70 mmHg Bedside Blood Gas pO2 (LAB) 61 mmHg Bedside Blood Gas HCO3 (LAB) 23 meq/L Bedside Blood Gas Total CO2 25 mEq/l Bedside Blood Gas Base Excess (LAB) -6.0 meq/L Bedside Blood Gas O2 Saturation 82.0 % Silvano Test Pass Oxygen Delivery Device SimpleMask Random Cortisol 54.14 mcg/dl Test 12/15/16 20:05 12/15/16 21:38 12/16/16 02:05 12/16/16 04:00 Fibrinogen 408 mg/dl Fibrin Degradation Products >40 mcg/ml D-Dimer 7100 ug/L FEU Blood Gas Sample Site L Radial R Radial Bedside Blood Gas pH (LAB) 7.32 7.18 Bedside Blood Gas pCO2 (LAB) 37 mmHg 44 mmHg Bedside Blood Gas pO2 (LAB) 45 mmHg 51 mmHg Bedside Blood Gas HCO3 (LAB) 20 meq/L 17 meq/L Bedside Blood Gas Total CO2 21 mEq/l 18 mEq/l Bedside Blood Gas Base Excess (LAB) -7.0 meq/L -12.0 meq/L Bedside Blood Gas O2 Saturation 86.0 % 78.0 % Silvano Test Pass Pass Oxygen Delivery Device BIPAP BIPAP Bedside Oxygen Rate (breaths/min) 12 12 Bedside FiO2 70 % 70 % Blood Gas IPAP 12 16 White Blood Count 1.29 K/uL Red Blood Count 4.48 M/uL Hemoglobin 13.7 g/dL Hematocrit 40.8 % Mean Corpuscular Volume 91.1 fL Mean Corpuscular Hemoglobin 30.6 pg Mean Corpuscular Hemoglobin Concent 33.6 g/dl Platelet Count 27 K/uL RDW Standard Deviation 53.7 fL RDW Coefficient of Variation 16.3 % Nucleated RBC Absolute Count (auto) 0.30 K/uL Neutrophils % (Manual) 67.6 % Lymphocytes % (Manual) 6.2 % Monocytes % (Manual) 3.1 % Eosinophils % (Manual) 1.5 % Metamyelocytes % 18.5 % Myelocytes % 3.1 % Nucleated Red Blood Cells % 23.0 % Neutrophils # (Manual) 0.87 K/uL Total Absolute Neutrophils 0.87 K/uL Lymphocytes # (Manual) 0.08 K/uL Total Absolute Lymphocytes 0.08 K/uL Monocytes # (Manual) 0.04 K/uL Eosinophils # (Manual) 0.02 K/uL Metamyelocytes # 0.24 K/uL Myelocytes # 0.04 K/uL Toxic Granulation 1+ Toxic Vacuolation OCCASIONAL Platelet Estimate SIGNIFIC DECREASED Giant Platelets 3+ Echinocytes 1+ Sodium Level 139 mmol/L Potassium Level 5.4 mmol/L Chloride Level 99 mmol/L Carbon Dioxide Level 27 mmol/L Anion Gap 13.0 mmol/L Blood Urea Nitrogen 75 mg/dl Creatinine 2.50 mg/dl Est Creatinine Clear Calc Drug Dose 17.9 ml/min Estimated GFR () 26.9 Estimated GFR (Non- 23.2 BUN/Creatinine Ratio 29.8 Random Glucose 30 mg/dl Fasting Insulin 4.0 mU/L Calcium Level 8.1 mg/dl Phosphorus Level 5.1 mg/dl Magnesium Level 2.3 mg/dl Total Bilirubin 0.7 mg/dl Aspartate Amino Transf (AST/SGOT) 114 U/L Alanine Aminotransferase (ALT/SGPT) 76 U/L Alkaline Phosphatase 81 U/L Troponin I 0.183 ng/ml Total Protein 5.9 gm/dl Albumin 3.1 gm/dl Globulin 2.8 gm/dl Albumin/Globulin Ratio 1.1 Lipase 3814 U/L Procalcitonin 3.38 ng/mL Test 12/16/16 04:32 12/16/16 05:00 12/16/16 06:14 Bedside Glucose 24 mg/dl 114 mg/dl Blood Gas Sample Site R Radial Bedside Blood Gas pH (LAB) 7.15 Bedside Blood Gas pCO2 (LAB) 74 mmHg Bedside Blood Gas pO2 (LAB) 87 mmHg Bedside Blood Gas HCO3 (LAB) 25 meq/L Bedside Blood Gas Total CO2 28 mEq/l Bedside Blood Gas Base Excess (LAB) -3.0 meq/L Bedside Blood Gas O2 Saturation 91.0 % Silvano Test Pass Oxygen Delivery Device BIPAP Bedside Oxygen Rate (breaths/min) 12 Bedside FiO2 100 % Blood Gas IPAP 16
--- NOTE | 2016-12-16 21:32 | Death Summary ---
Summary of Admission Date Dec 15, 2016 at 17:12 Date & Time of Dec 16, 2016. 0807 Cause of septic shock 2nd to pneumonia Secondary Diagnoses 1. metabolic encephalopathy 2. complete heart block 3. severe leukopenia with neutropenia 4. severe thrombocytopenia 5. acute renal failure 6. acute hypoxic/hypercarbic respiratory failure 7. acute/chronic systolic CHF 8. acute pancreatitis 9. h/o CAD 10. h/o osteogenesis imperfecta 11. COPD 12. pulmonary fibrosis 13. rheumatoid arthritis 14. HTN 15. paroxysmal a. fib 16. pulmonary HTN Hospital Course 81yo male with numerous medical problems as noted above who presented with altered mental status, hypothermia, hypotension, and severe bradycardia. At time of admission was found to be in complete heart block requiring transcutaneous pacing. He was leukopenic, thrombocytopenic, acidotic, and in acute renal failure. There was concern he was in septic shock from pneumonia or another source. Lipase was markedly elevated suggestive of acute pancreatitis as well. He was admitted to the ICU and given supportive care measures. During his brief stay his overall condition rapidly worsened with progressive multiorgan failure. Due to DNR status the medical team discussed comfort measures with his family, and within a brief period of time he passed comfortably. Time of - 0807 on 12/16/16. Copy To Shekhar Persaud; Vinnie Nieves M.D.
[2016-12-17] MEDS ORDERED: LEVOFLOXACIN / D5W 750 MG in PREMIXED IN D5W 150 ML IV SCH (18:00)
== END 2016-12-16 10:10 | disposition expired | DRG 871 ==
LOC: ENRESERVTM → ENRESERVDT → EDBD 15:08 → C.EDB 15:11 → C.MSICU 17:12 → EDBEDREQ 17:26
PROVIDERS: ADMIT Family Medicine; ATTEND Family Medicine
DX: A41.9 Sepsis, unspecified organism (principal); R65.21 Severe sepsis with septic shock; J18.9 Pneumonia, unspecified organism; J96.02 Acute respiratory failure with hypercapnia; G93.41 Metabolic encephalopathy; J96.01 Acute respiratory failure with hypoxia; I50.23 Acute on chronic systolic (congestive) heart failure; K85.90 Acute pancreatitis without necrosis or infection, unspecified; I42.9 Cardiomyopathy, unspecified; Q78.0 Osteogenesis imperfecta; N17.9 Acute kidney failure, unspecified; D61.818 Other pancytopenia; I44.2 Atrioventricular block, complete; Z51.5 Encounter for palliative care; Z66 Do not resuscitate; E16.2 Hypoglycemia, unspecified; I25.10 Atherosclerotic heart disease of native coronary artery without angina pectoris; I10 Essential (primary) hypertension; M19.90 Unspecified osteoarthritis, unspecified site; M81.0 Age-related osteoporosis without current pathological fracture; I27.2 Other secondary pulmonary hypertension; E03.9 Hypothyroidism, unspecified; M06.9 Rheumatoid arthritis, unspecified; I48.0 Paroxysmal atrial fibrillation; J44.9 Chronic obstructive pulmonary disease, unspecified; J84.10 Pulmonary fibrosis, unspecified; J98.4 Other disorders of lung; B95.62 Methicillin resistant Staphylococcus aureus infection as the cause of diseases classified elsewhere; T68.XXXA Hypothermia, initial encounter; X58.XXXA Exposure to other specified factors, initial encounter; Z86.718 Personal history of other venous thrombosis and embolism; Z95.2 Presence of prosthetic heart valve; Z95.1 Presence of aortocoronary bypass graft; Z82.49 Family history of ischemic heart disease and other diseases of the circulatory system; Z81.8 Family history of other mental and behavioral disorders; Z79.52 Long term (current) use of systemic steroids; Z79.82 Long term (current) use of aspirin; Z79.899 Other long term (current) drug therapy